=== PATIENT | female | born 1955 | race Caucasian/White ===

== ENCOUNTER 2018-05-07 09:52 | Inpatient (IN) | payer MEDICAID ==
[~2018-05-07] VITALS: Ht 167.6 cm; Wt 47.8 kg
[2018-05-07] VITALS (19 sets, daily range): BP systolic 91–147; BP diastolic 43–117
--- NOTE | 2018-05-07 09:58 | NUR ---
SEEN AND EXAMINED BY DR. BELTRÁN.
--- NOTE | 2018-05-07 10:05 | NUR ---
PT [id number], FROM HOME, SOB AND RAPID AFIB HR178, PT IS AAOX3, NOTED RESPIRATORY DISTRESS, HOOKED TO MONITOR AND O2 AT 2LPM VIA NC, KEPT RESTED AND COMFORTABLE, WILL CONTINUE TO MONITOR.
[2018-05-07] MEDS ORDERED: DILTIAZEM HCL 25 MG IV ONE (10:11)
[2018-05-07] MEDS ORDERED: ASPIRIN 81 MG TAB.CHEW ONE (10:11)
[2018-05-07 10:13] LABS: BASOPHILS # (AUTO) 0.1 /CMM (0.0-0.2); BASOPHILS % (AUTO) 0.5 % (0.0-2.0); HEMATOCRIT 36 % (33-45); HEMOGLOBIN 11.6 g/dL (11.5-14.8); LYMPHOCYTES # (AUTO) 0.4 /CMM (0.8-4.8); MEAN CORPUSCULAR HGB CONC 32 g/dl (31.0-36.0); MEAN CORPUSCULAR VOLUME 77 fL (82-100); MONOCYTES # (AUTO) 0.5 /CMM (0.1-1.30); MONOCYTES % (AUTO) 4.6 % (2.0-12.0); NEUTROPHILS % (AUTO) 90.9 % (43.0-81.0); PLATELET COUNT (AUTO) 356 /CMM (150-450); RED BLOOD CELL COUNT(AUTO) 4.61 MIL/uL (4.0-5.2)
--- NOTE | 2018-05-07 10:15 | NUR ---
LABS DRAWNED AND SENT TO LAB.
--- NOTE | 2018-05-07 10:18 | NUR ---
PARTS PICKER AT BEDSIDE FOR XRAY.
[2018-05-07] MEDS ORDERED: ASPIRIN 81 MG TAB.CHEW PO ONE (10:30)
[2018-05-07] MEDS ORDERED: DILTIAZEM HCL 50 MG IV IV ONE (10:30)
[2018-05-07 10:40] LABS: BILIRUBIN,DIRECT 0.2 mg/dL (0.0-0.2); BILIRUBIN,TOTAL 0.5 mg/dL (0.2-1.0); CALCIUM, SERUM 8.8 mg/dL (8.5-10.1); CREATININE 0.8 mg/dL (0.6-1.3)
[2018-05-07 10:41] LABS: ALBUMIN 3.1 g/dL (3.4-5.0); TOTAL PROTEIN, SERUM 7.5 g/dL (6.4-8.2)
[2018-05-07] MEDS ORDERED: LORA1TAB PO (10:53)
[2018-05-07] MEDS ORDERED: AMLO10TA7 PO (10:53)
[2018-05-07] MEDS ORDERED: ALOG25TA2 PO (10:53)
[2018-05-07] MEDS ORDERED: HALO10TA13 PO (10:53)
[2018-05-07] MEDS ORDERED: BENZ1TAB7 PO (10:53)
[2018-05-07] MEDS ORDERED: BLOO-668 IN (10:53)
[2018-05-07] MEDS ORDERED: MECL12.582 PO (10:53)
[2018-05-07] MEDS ORDERED: CLON0.1T PO (10:53)
[2018-05-07] MEDS ORDERED: LOSA50TA39 PO (10:53)
--- NOTE | 2018-05-07 11:05 | NUR ---
TURNED IN MOVE SHEET
--- NOTE | 2018-05-07 11:54 | NUR ---
SPOKED TO KWESI FOR PT INFO AND STATUS.
[2018-05-07] MEDS ORDERED: DILTIAZEM HCL IV 125 MG in IV D5W 100 ML IV ONE (12:00)
--- NOTE | 2018-05-07 12:30 | NUR ---
CALLED NURSING SUP. FOR ICU BED
--- NOTE | 2018-05-07 12:40 | NUR ---
TECH AT BEDSIDE FOR ULTRASOUND.
--- NOTE | 2018-05-07 12:47 | NUR ---
PATIENT GOING TO ROOM 253 CHARLA RN RECEIVING NURSE
--- NOTE | 2018-05-07 13:15 | NUR ---
DR. WHEELER AT BEDSIDE FOR EVAL.
--- NOTE | 2018-05-07 13:25 | NUR ---
REPORT GIVEN TO JASKARAN DUNHAM FOR SAURABH.
[2018-05-07] MEDS ORDERED: DILTIAZEM HCL IV 125 MG in IV D5W 100 ML IV PRN (14:00)
[2018-05-07] MEDS ORDERED: DIGOXIN INJ 0.5 MG/2 ML AMPUL IV ONE (14:00)
[2018-05-07] MEDS ORDERED: *INSULIN REGULAR(HUMULIN R)HUM 100 UNIT/ML VIAL SQ PRN (14:00)
[2018-05-07] MEDS ORDERED: DEXTROSE 50%-WATER 50 ML DISP.SYRIN IV PRN (14:00)
[2018-05-07] MEDS ORDERED: BENZTROPINE MESYLATE (1 MG) 1 MG TABLET PO SCH ×2 (14:00)
[2018-05-07] MEDS ORDERED: ACETAMINOPHEN 325 MG TABLET PO PRN (14:00)
[2018-05-07] MEDS: METOPROLOL TARTRATE 50 MG TABLET PO SCH ×3 (14:14→21:00)
[2018-05-07] MEDS: BLOOD SUGAR DIAGNOSTIC 1 EACH STRIP VI SCH ×2 (17:23→21:03)
[2018-05-07] MEDS: INSULIN REGULAR, HUMAN 100 UNIT/ML 3 ML VIAL SQ PRN (17:26)
--- NOTE | 2018-05-07 18:21 | NUR ---
ROOF BOLTER OPERATOR ADMITTING NOTES: 1345H Rec'd pt via gurney accompanied by RN & TELECOMMUNICATIONS LINESWORKER. Pt is A/O x 2-3, not in any distress, denies any CP & palpitations. On NC at 2lpm, no SOB, sating at 98%. Placed on telemonitor, uncontrolled Afib w/ HR 120 bpm. Has 2 IV line access patent & intact w/ no s/sx of infection/infiltration noted - RH G20 w/ Cardizem drip x 10 mg/hr infusing well & LH G18, SL. No skin issues noted. Pt is independent w/ bed mobility. 1420H Consent for US Guided Thoracentesis of the L lung secured, signed by pt w/ verbalization of understanding. Procedure done by IR, tolerated well w/ 1.5L output. Pleural fluid specimen sent to lab for further studies as ordered. CXR ordered STAT post thoracentesis. Dr. Reis s/e pt. Dr. Ruggiero made aware of the latest Trop 2.517 & current condition of the pt (controlled HR while on Cardizem at 5mg/hr) w/ NNO. 1800H Family came & updated about pt status. Pt was oriented to her room. Safety precaution kept in place at all times w/ bed in lowest & locked pos. Call light placed w/in reach. Will endorse to PM RN for SAURABH.
--- NOTE | 2018-05-07 19:30 | NUR ---
RN NOTES RECEIVED PT AWAKE WATCHING TV ON BED. NO ACUTE RESPIRATORY DISTRESS. WITH O2 2LPM VIA NC SATURATION 98%. PATIENT IS AOX2 ABLE TO VERBALIZED NEEDS. A-FIB CONTROLLED ON TELE MONITOR. HR 80 IV SITE ON RIGHT HAND AND LEFT AND INTACT AND PATENT RUNNING WITH CARDIZEM @ 5MG/HR AND 1/2 NS +10MEQ KCL @ 75 ML/HR. VSS STABLE AT THIS TIME. CONTINUE TO MONITOR FOR ANY S/S FRO M S/ P THORACENTESIS. KEPT PT CLEAN AND DRY. CALL LIGHT KEPT WITHIN EASY REACH AND ENCOURAGE TO USED WHEN NEED ASSISTANCE, DEMONSTRATED UNDERSTANDING.
[2018-05-07] MEDS: HALOPERIDOL 5 MG TABLET PO SCH (21:03)
--- NOTE | 2018-05-07 22:00 | NUR ---
RN NOTES STOP CARDIZEM DRIP PER DR. WHEELER ORDER, SBP <100MMHG. PT IS ALERT - TACHYCARDIA AND TACHYPNEA. WILL CONTINUE TO MONITOR.
--- NOTE | 2018-05-07 22:15 | NUR ---
RN NOTES CALLED AND SPOKE TO DR. WHEELER THAT PATIENT SBP WENT DOWN TO 91 AND PATIENT STILL ON DILTIAZEM @ 5 MG/ML AND ALSO PATIENT REFUSED TO TAKE METOPROLOL BY MOUTH. MD ORDER TO GIVE METOPROLOL 5MG IVP Q6H, HOLD IF HR <60 AND TO GIVE ATIVAN 1 MG Q6H PRN NOTED AND CARRIED OUT ORDER
[2018-05-07] MEDS ORDERED: LORAZEPAM INJ 2 MG/ML VIAL IV PRN (22:30)
[2018-05-07] MEDS: METOPROLOL TARTRATE INJ 5 MG/5 ML AMPUL IVP SCH (23:00)
[2018-05-07] MEDS: LORAZEPAM 1 MG TABLET PO PRN (23:01)
[2018-05-08] VITALS (37 sets, daily range): BP systolic 86–142; BP diastolic 33–87
[2018-05-08 04:16] LABS: BASOPHILS % (AUTO) 0.2 % (0.0-2.0); EOSINOPHILS % (AUTO) 0.8 % (0.0-6.0); HEMATOCRIT 34 % (33-45); HEMOGLOBIN 11.2 g/dL (11.5-14.8); LYMPHOCYTES # (AUTO) 0.8 /CMM (0.8-4.8); LYMPHOCYTES % (AUTO) 9.8 % (20.0-44.0); MEAN CORPUSCULAR HGB CONC 33 g/dl (31.0-36.0); MEAN CORPUSCULAR VOLUME 78 fL (82-100); MONOCYTES # (AUTO) 0.5 /CMM (0.1-1.30); MONOCYTES % (AUTO) 6.8 % (2.0-12.0); NEUTROPHILS # (AUTO) 6.5 /CMM (1.8-8.9); NEUTROPHILS % (AUTO) 82.4 % (43.0-81.0); PLATELET COUNT (AUTO) 313 /CMM (150-450); RED BLOOD CELL COUNT(AUTO) 4.34 MIL/uL (4.0-5.2); WHITE BLOOD COUNT (AUTO) 7.9 K/uL (4.3-11.0)
[2018-05-08 04:42] LABS: ALBUMIN 2.5 g/dL (3.4-5.0); BILIRUBIN,TOTAL 0.4 mg/dL (0.2-1.0); CREATININE 0.5 mg/dL (0.6-1.3); POTASSIUM 3.9 mmol/L (3.5-5.1); TOTAL PROTEIN, SERUM 6.2 g/dL (6.4-8.2)
[2018-05-08] MEDS: METOPROLOL TARTRATE INJ 5 MG/5 ML AMPUL IVP SCH (06:17)
--- NOTE | 2018-05-08 07:10 | NUR ---
RN INITIAL NOTES: Rec'd pt awake on bed, slight restless, A/O x 2. On room air, sating at 98%. On telemonitor, controlled/uncontrolled Afib. Has IV line on RH G20 SL & LH G18 w/ 1/2 NS + 10 meqs KCL x 75 cc/hr infusing well w/ no s/sx of infection/infiltration noted. Safety precaution all in place w/ bed in lowest & locked pos. Bed alarm on. Call light w/in reach. Will continue to monitor & attend pt needs.
--- NOTE | 2018-05-08 07:14 | NUR ---
RN NOTES PATIENT AWAKE AND WANTED TO GET OOB. FREQUENTLY REMINDED ABOUT SAFETY AND PREVENTION FROM FALLS. ANXIETY PRESENT. NO SIGNIFICANT CHANGES THROUGHOUT THE SHIFT. REMAINED A-FIB CONTROLLED ON TELE MONITOR HIGHEST HR WAS 122 NOT SUSTAINING. AFEBRILE. TOLERATED ROOM AIR. SATURATION REMAINED >95%. KEPT PT CLEAN AND DRY. ENDORSED CONTINUITY OF CARE TO AM NURSE.
--- NOTE | 2018-05-08 07:35 | NUR ---
Pt seen & examined by Dr. Ruggiero.
[2018-05-08] MEDS: BLOOD SUGAR DIAGNOSTIC 1 EACH STRIP VI SCH ×4 (07:54→22:54)
[2018-05-08] MEDS: INSULIN REGULAR, HUMAN 100 UNIT/ML 3 ML VIAL SQ PRN ×3 (07:55→17:22)
--- NOTE | 2018-05-08 08:40 | NUR ---
Pt seen & examined by Dr. Reis w/ orders to follow up consult w/ Dr. Irwin for pigtail placement.
--- NOTE | 2018-05-08 08:54 | NUR ---
Pt seen & examined by Dr. Preciado w/ orders made & carried out. Per , keep pt NPO except meds for now for possible pigtail placement on the L lung. Dr. Irwin made aware, awaiting for response.
[2018-05-08] MEDS ORDERED: MECLIZINE HCL 12.5 MG TABLET PO PRN (09:00)
[2018-05-08] MEDS: LORAZEPAM 1 MG TABLET PO PRN ×2 (10:01→18:57)
--- NOTE | 2018-05-08 11:06 | NUR ---
Dr. Ruggiero made aware re: uncontrolled Afib w/ HR >140's. Per MD change Cardizem to 240mg once daily and may change transfer to Tele instead of MS.
[2018-05-08] MEDS ORDERED: DILTIAZEM HCL 30 MG TABLET PO SCH ×2 (11:30→12:00)
[2018-05-08] MEDS: DILTIAZEM HCL CD 240 MG PO SCH (11:31)
[2018-05-08] MEDS: DIGOXIN 0.125 MG TABLET PO SCH (12:33)
--- NOTE | 2018-05-08 13:14 | NUR ---
Per Dr. Irwin, he will see pt later at 5pm & will do procedure tomorrow. Dr. Reis & Dr. Ruggiero made aware.
--- NOTE | 2018-05-08 13:18 | NUR ---
Dr. Ruggiero updated that despite of the Cardizem 240mg cap PO & Digoxin 0.12gmg tab PO given, pt's HR still at 150's. Per MD, may give Digoxin 0.25 mg IVP x 1. also made aware that per Dr. Irwin, pigtail placement will be done tomorrow.
[2018-05-08] MEDS ORDERED: DIGOXIN INJ 0.5 MG/2 ML AMPUL IV ONE (13:30)
--- NOTE | 2018-05-08 16:15 | NUR ---
Rec'd call from Dr. Irwin, per to secure consent for placement of Pleurx drainage on L lung. NPO post MN.
--- NOTE | 2018-05-08 17:50 | NUR ---
TRANSFERRED FROM ICU,FAMILY AT BEDSIDE. HOOKED UP TO TELE RHYTHM AFIB RATE OF 108.PT. ORIENTED TO RM.IV INFUSING.SIDE RAILS UP.CALL SEWELL WITHIN REACH.
--- NOTE | 2018-05-08 18:00 | NUR ---
ELECTRONICS TECHNICIAN NOTES: Confirmed w/ Dr. Preciado re: transfer to Tele. Pt's current HR at 90-100's. Per okay to transfer. Pt was transferred to Tele 315/2 as ordered via bed accompanied by RN & family. Pt not in any distress. IV line access kept patent & intact w/ no s/sx of infection/infiltration noted. No belongings noted. Medications sent w/ pt. Report given to Gretel JESSICA, made her aware re: consent already signed for planned procedure cirilo & to keep pt NPO post MN as ordered by Dr. Irwin. Family & pt also updated regarding the planned procedure. No concerns/issues upon transfer.
--- NOTE | 2018-05-08 18:57 | NUR ---
PT. PULLING AT IV AND REMOVING O2 SET UP. FAMILY OUT TO DESK AND ASKING FOR HER TO BE MEDICATED,STATE THEY WILL WAIT FOR RN.FAMILY OPPOSED TO WRIST RESTRAINTS,REQUEST MEDICATION.GIVEN ATIVAN 1 MG PO. BED ALARM SET.
--- NOTE | 2018-05-08 20:00 | NUR ---
MS/RN OPENING NOTES RECEIVED PATIENT IN BED, ATTEMPTED TO PULL IV LINES, AND GETS UP REPORTED WANT TO TALK TO BROTHER REQUIRE ASSISTANCE FOR SAFETY. BEING MONITORED AND WITH NURSE, SITTING ON WHEEL CHAIR. LEFT HAND IV SITE PATENT, RIGHT HAND IV SITE PATENT. WILL MONITOR. DENIES PAIN BUT ANXIOUS, ATIVAN WAS GIVEN BY AM RN PRIOR TO START OF SHIFT.
[2018-05-08] MEDS: HALOPERIDOL 5 MG TABLET PO SCH (22:54)
--- NOTE | 2018-05-08 23:03 | NUR ---
BS-131 ON NPO AT MIDNIGHT.
[2018-05-09] VITALS (10 sets, daily range): BP systolic 106–128; BP diastolic 66–79
--- NOTE | 2018-05-09 02:42 | NUR ---
MS/RN NOTES IV PULLED OUT BY PATIENT, REMOVE OLD IV SITE ON LEFT AND RIGHT HAND, IV INSERT ATTEMPTED BUT FAILED 2X, PATIENT REQUESTED TO HAVE IT REINSERTED IN THE MORNING.
[2018-05-09 06:28] LABS: BASOPHILS % (AUTO) 0.1 % (0.0-2.0); EOSINOPHILS % (AUTO) 0.4 % (0.0-6.0); HEMATOCRIT 39 % (33-45); HEMOGLOBIN 12.6 g/dL (11.5-14.8); LYMPHOCYTES # (AUTO) 0.6 /CMM (0.8-4.8); LYMPHOCYTES % (AUTO) 8.2 % (20.0-44.0); MEAN CORPUSCULAR HGB CONC 32 g/dl (31.0-36.0); MEAN CORPUSCULAR VOLUME 77 fL (82-100); MONOCYTES # (AUTO) 0.5 /CMM (0.1-1.30); NEUTROPHILS # (AUTO) 6.2 /CMM (1.8-8.9); NEUTROPHILS % (AUTO) 84.3 % (43.0-81.0); PLATELET COUNT (AUTO) 324 /CMM (150-450); RED BLOOD CELL COUNT(AUTO) 5.08 MIL/uL (4.0-5.2); WHITE BLOOD COUNT (AUTO) 7.4 K/uL (4.3-11.0)
[2018-05-09] MEDS: BLOOD SUGAR DIAGNOSTIC 1 EACH STRIP VI SCH ×4 (06:39→21:09)
[2018-05-09 06:53] LABS: CALCIUM, SERUM 8.3 mg/dL (8.5-10.1); CREATININE 0.5 mg/dL (0.6-1.3); POTASSIUM 3.9 mmol/L (3.5-5.1)
[2018-05-09 06:58] LABS: THYROID STIMULATING HORMONE 2.573 uIU/mL (0.358-3.74)
--- NOTE | 2018-05-09 07:25 | NUR ---
RN AM OPENING NOTE BEDSIDE REPORT RECIEVED FROM PM NURSE. PATIENT IS RESTING IN BED. ODESSA TAMAYO AT THE BEDSIDE. PATIENT HAS PLANNED PROCEDURE AND IS NPO EXCEPT MEDICATIONS. BED IS DOWN LOCKED WITH IV INFUSING TO LEFT FA WITH NO S/S OF COMPLICATIONS. PATIENT IS SATURATING GOOD ON ROOM AIR EVEN AND UNLABORED BUT PLACED BACK ON 2 LNC PROPHYLATICALLY SINCE CC WAS SOB UPON ADMISSION. WILL CONT TO MONITOR.
--- NOTE | 2018-05-09 07:52 | NUR ---
MS/RN NOTES PATIETN AWAKE, WITH SITTER ORDER, RESPIRATIONS EVEN AND UNLABORED. KEPT COMFORTABLE. BED LOCKED. CALL LIGHTS WITHIN REACH. ENDORSE TO AM RN FOR SAURABH. ON NPO FOR PROCEDURE.
[2018-05-09] MEDS ORDERED: Digoxin PO (08:30)
[2018-05-09] MEDS ORDERED: ASPI-1152 PO (08:30)
[2018-05-09] MEDS ORDERED: DILT240C88 PO (08:30)
[2018-05-09] MEDS: DILTIAZEM HCL CD 240 MG PO SCH (08:52)
[2018-05-09] MEDS: INSULIN REGULAR, HUMAN 100 UNIT/ML 3 ML VIAL SQ PRN (12:03)
[2018-05-09] MEDS: DIGOXIN 0.125 MG TABLET PO SCH (12:06)
[2018-05-09] MEDS ORDERED: ANESTHESIA TRAY IN PYXIS 1 EA TRAY MC ONE (14:35)
[2018-05-09] MEDS ORDERED: LIDOCAINE HCL/PF 1% 30 ML SDV ONE (14:36)
--- NOTE | 2018-05-09 15:45 | NUR ---
MS RN NOTES PATIENT RETURNED FROM OR S/P PLEORX IN STABLE CONDITION WITH SURGICAL SITE ON LEFT CHEST COVERED WITH GAUZE AND TEGADERM NO DRAINAGE NOTED WILL CONTINUE TO MONITOR.
--- NOTE | 2018-05-09 18:00 | NUR ---
AU PAIR NOTES PATIENT IN BED WITH SITTER AT BEDSIDE. PATIENT ALERT, ORIENTED X3. DENIES ANY PAIN OR DISCOMFORT. ALL DUE MEDICATIONS ADMINISTERED. ALL NEEDS MET. PATIENT S/P PLEORX INSERTION. DR. WHEELER MADE AWARE OF CHEST XRAY RESULTS NO NEW ORDERS. ENDORSED CARE TO PM SHIFT.
[2018-05-09] MEDS ORDERED: HYDROCODONE/APAP 5/325MG 1 EACH TABLET PO PRN ×2 (20:00)
[2018-05-09] MEDS ORDERED: ACETAMINOPHEN 325 MG TABLET PO PRN (20:00)
[2018-05-09] MEDS: HALOPERIDOL 5 MG TABLET PO SCH (21:09)
[2018-05-09] MEDS: LORAZEPAM 1 MG TABLET PO PRN (21:18)
[2018-05-10] VITALS: BP 104/64
--- NOTE | 2018-05-10 | NUR ---
COVERSTITCH ELASTIC ATTACHER NOTES AWAKE & RESPONSIVE. NOT IN ANY DISTRESS. NO SOB NOTED. DENIES ANY PAIN OR DISCOMFORT AT THIS TIME. ON TELE AFIB @ 90S WITH IVF INFUSING WELL. MONITORED ACCORDINGLY. WITH SITTER AT BEDSIDE. CALL LIGHT WITHIN REACH. BED IN LOWEST POSITION. SR UP X 3 FOR SAFETY. REPORT GIVEN TO WHITNEY JESSICA FOR CONTINUITY OF CARE.
[2018-05-10 04:00] VITALS: BP 120/60
--- NOTE | 2018-05-10 04:00 | NUR ---
TELE NOTES RECEIVED REPORT FORM VICENTE. PT IN BED, NO DISTRESS, STABLE CONDITION,SITTER AT BEDSIDE, WILL CONTINUE TO MONITOR
--- NOTE | 2018-05-10 06:01 | NUR ---
THERMIT WELDING MACHINE OPERATOR CLOSING NOTES PT REMAINS IN BED, SLEEPING, EASILY AROUSE TO NAME CALL AND TOUCH. BREATHING EVEN AND UNLABORED ON 2L, NO COUGH OR CONGESTION AT THIS TIME. IN NO APPARENT PAIN OR DISCOMFORT AT THE MOMENT. IV ACCESS ON THE L FA20G WITH 1/2 AND 10MEQ OF POTASSIUM @75ML/HR. ALL NEEDS ANTICIPATED AND MET. PLEURX IN PLACE, DRESSING DRY AND INTACT. BED IN LOWEST LOCKED POSITION, CALL LIGHT WITHIN REACH AT ALL TIMES SITTER AT BED SIDE, WILL ENDORSE TO DAY NURSE FOR SAURABH
[2018-05-10 06:27] LABS: BASOPHILS % (AUTO) 0.1 % (0.0-2.0); EOSINOPHILS % (AUTO) 0.4 % (0.0-6.0); HEMATOCRIT 41 % (33-45); HEMOGLOBIN 13.1 g/dL (11.5-14.8); LYMPHOCYTES # (AUTO) 0.4 /CMM (0.8-4.8); LYMPHOCYTES % (AUTO) 4.8 % (20.0-44.0); MEAN CORPUSCULAR HGB CONC 32 g/dl (31.0-36.0); MEAN CORPUSCULAR VOLUME 79 fL (82-100); MONOCYTES # (AUTO) 0.7 /CMM (0.1-1.30); MONOCYTES % (AUTO) 7.5 % (2.0-12.0); NEUTROPHILS # (AUTO) 7.8 /CMM (1.8-8.9); NEUTROPHILS % (AUTO) 87.2 % (43.0-81.0); PLATELET COUNT (AUTO) 311 /CMM (150-450); RED BLOOD CELL COUNT(AUTO) 5.19 MIL/uL (4.0-5.2); WHITE BLOOD COUNT (AUTO) 8.9 K/uL (4.3-11.0)
[2018-05-10] MEDS: BLOOD SUGAR DIAGNOSTIC 1 EACH STRIP VI SCH (06:45)
[2018-05-10 06:52] LABS: CALCIUM, SERUM 8.3 mg/dL (8.5-10.1); CREATININE 0.5 mg/dL (0.6-1.3); POTASSIUM 3.7 mmol/L (3.5-5.1)
[2018-05-10 08:00] VITALS: BP 120/60
[2018-05-10 08:08] VITALS: BP 103/67
[2018-05-10] MEDS: DILTIAZEM HCL CD 240 MG PO SCH (09:39)
[2018-05-10] MEDS ORDERED: METO25TA6 PO (09:49)
[2018-05-10] MEDS ORDERED: METOPROLOL TARTRATE 25 MG TABLET PO SCH (10:00)
[2018-05-10 10:24] VITALS: BP 120/60
--- NOTE | 2018-05-10 13:45 | NUR ---
PATIENT CLEARED FOR D/C BY . PATIENT D/C TO HOME WITH HOME HEALTH (STATUS POST LEFT SIDE PLEURX DRAIN). PATIENT ALERT AND ORIENTED X3, FAMILY AT BEDSIDE. PATIENT DENIES PAIN, VS ARE STABLE AND WITHIN NORMAL RANGE, ON ROOM AIR, NO SKIN ISSUES. DRESSING ON LEFT SIDE INTACT AND CLEAN. DISCHARGE INSTRUCTIONS AND EDUCATION PROVIDED TO SONIA'S SISTER; VERBALIZED UNDERSTANDING. D/C PAPERS SIGHED, VALUABLE FORM SIGHED. PATIENT RECEIVED PLEURX DRAIN BOTTLE (ONE BOX).NEW PRESCRIPTION PROVIDED. IV LINE REMOVED , ID WRIST BAND REMOVED. PATIENT SAFELY TRANSFERRED TO [employer] VIA WHEELCHAIR ACCOMPANIED BY KELLE ALVAREZ AND FAMILY.
== END 2018-05-10 13:45 | disposition home health service (06) | DRG 136 ==
LOC: ER 09:55 → ICU 13:21 → MED 05-08 18:19 → TELE 05-09 21:01 → MED 05-10 10:17
PROVIDERS: ADMIT Internal Medicine; ATTEND Internal Medicine
PROC: 0W9B3ZZ Drainage of Left Pleural Cavity, Percutaneous Approach (ICD-10-PCS; 2018-05-07)
PROC: 0W9B30Z Drainage of Left Pleural Cavity with Drainage Device, Percutaneous Approach (ICD-10-PCS; principal; 2018-05-09)
DX: C34.90 Malignant neoplasm of unspecified part of unspecified bronchus or lung (principal); I21.4 Non-ST elevation (NSTEMI) myocardial infarction; J91.0 Malignant pleural effusion; E44.1 Mild protein-calorie malnutrition; E11.9 Type 2 diabetes mellitus without complications; D50.9 Iron deficiency anemia, unspecified; E87.1 Hypo-osmolality and hyponatremia; I48.91 Unspecified atrial fibrillation; I10 Essential (primary) hypertension; J44.9 Chronic obstructive pulmonary disease, unspecified; F17.210 Nicotine dependence, cigarettes, uncomplicated; Z92.21 Personal history of antineoplastic chemotherapy; F32.9 Major depressive disorder, single episode, unspecified; F20.9 Schizophrenia, unspecified; Z92.3 Personal history of irradiation; Z68.1 Body mass index [BMI] 19.9 or less, adult
CPT/HCPCS: 36415; 71045-TC; 76604-TC; 76942-TC; 80048-TC; 80053-TC; 80076-TC; 82962-TC; 83540-TC; 83880; 84443-TC; 84484-TC; 85025-TC; 85730-TC; 87070-TC; 87081-TC; 88305-TC; 88312-TC; 88342; 89051-TC; 93307-TC; A6402; G0378; J0690; J1160; J1815; J2704; J3480; J3490; J7060

== ENCOUNTER 2018-05-12 08:33 | Emergency (ER) | payer MEDICAID ==
[~2018-05-12] VITALS: Ht 170.2 cm; Wt 47.6 kg
[~2018-05-12 08:33] MED LIST: ALOG25TA2 PO; ASPI-1152 PO; BENZ1TAB7 PO; CLON0.1T PO; DILT240C88 PO; Digoxin PO; HALO10TA13 PO; LORA1TAB PO; LOSA50TA39 PO; MECL12.582 PO; METO25TA6 PO
[2018-05-12 08:42] VITALS: BP 108/67
--- NOTE | 2018-05-12 09:00 | NUR ---
WOUND DRESSING DONE.
--- NOTE | 2018-05-12 09:36 | NUR ---
Patient discharged to home in stable condition. Written and verbal after care instructions given. Patient verbalizes understanding of instruction.
== END 2018-05-12 09:38 | disposition home or self-care (01) ==
LOC: ER 08:38
DX: Z48.00 Encounter for change or removal of nonsurgical wound dressing (principal); E11.9 Type 2 diabetes mellitus without complications; F17.200 Nicotine dependence, unspecified, uncomplicated; Z79.82 Long term (current) use of aspirin; Z79.899 Other long term (current) drug therapy; Z85.118 Personal history of other malignant neoplasm of bronchus and lung

== ENCOUNTER 2018-07-02 09:05 | Emergency (ER) | payer MEDICAID ==
[~2018-07-02] VITALS: Ht 170.2 cm; Wt 47.6 kg
[2018-07-02 09:26] VITALS: BP 139/94
--- NOTE | 2018-07-02 09:32 | NUR ---
patient BIB family from home, family states that she had lung drain 1 week ago, done by homehealth nurse and noted blood and pain. Patient on room air, breathing evenly and unlabored. Connected to the monitor and pulse ox. kept comfortable, will continue to monitor accordingly.
--- NOTE | 2018-07-02 10:30 | NUR ---
drained fluid from rt chest pleurx with 200ml of serous fluid, dr. loja at bedside, per md, discard specimen, does not need to be sent to lab.
[2018-07-03] MEDS ORDERED: ONDANSETRON HCL/PF 4 MG/2 ML VIAL ONE (23:44)
== END 2018-07-02 10:45 | disposition home or self-care (01) ==
LOC: ER 09:05
DX: J90 Pleural effusion, not elsewhere classified (principal); C34.92 Malignant neoplasm of unspecified part of left bronchus or lung; F17.200 Nicotine dependence, unspecified, uncomplicated; Z79.82 Long term (current) use of aspirin
CPT/HCPCS: 71045-TC; J2405

== ENCOUNTER 2018-08-03 02:53 | Inpatient (IN) | payer MEDICAID ==
[~2018-08-03] VITALS: Ht 167.6 cm; Wt 46.3 kg
[2018-08-03] MEDS ORDERED: DIGOXIN INJ 0.5 MG/2 ML AMPUL ONE (03:29)
[2018-08-03] MEDS ORDERED: DILTIAZEM HCL 25 MG IV ONE (03:30)
[2018-08-03] MEDS ORDERED: DIGOXIN INJ 0.5 MG/2 ML AMPUL IV ONE (03:30)
[2018-08-03] MEDS ORDERED: IV NS 0.9% 1,000 ML BAG IV ONE ×2 (03:30→04:30)
[2018-08-03] MEDS ORDERED: DILTIAZEM HCL 50 MG IV IV ONE (03:30)
[2018-08-03 03:37] LABS: EOSINOPHILS % (AUTO) 0.1 % (0.0-6.0); HEMATOCRIT 38 % (33-45); LYMPHOCYTES # (AUTO) 0.5 /CMM (0.8-4.8); LYMPHOCYTES % (AUTO) 2.6 % (20.0-44.0); MEAN CORPUSCULAR HGB CONC 32 g/dl (31.0-36.0); MEAN CORPUSCULAR VOLUME 79 fL (82-100); MONOCYTES # (AUTO) 0.8 /CMM (0.1-1.30); MONOCYTES % (AUTO) 4.7 % (2.0-12.0); NEUTROPHILS # (AUTO) 16.3 /CMM (1.8-8.9); NEUTROPHILS % (AUTO) 92.6 % (43.0-81.0); PLATELET COUNT (AUTO) 434 /CMM (150-450); RED BLOOD CELL COUNT(AUTO) 4.73 MIL/uL (4.0-5.2); WHITE BLOOD COUNT (AUTO) 17.6 K/uL (4.3-11.0)
[2018-08-03 03:41] LABS: CALCIUM, SERUM 9.3 mg/dL (8.5-10.1); CREATININE 0.8 mg/dL (0.6-1.3)
[2018-08-03] MEDS ORDERED: PIPERACILLIN /TAZOBACTAM 3.375 G in IV D5W 50 ML IV ONE (04:30)
[2018-08-03] MEDS ORDERED: VANCOMYCIN 1 GM in IV D5W 250 ML IV ONE (04:30)
[2018-08-03 04:58] LABS: ALANINE AMINOTRANSFERASE 9 U/L (12-78); ALKALINE PHOSPHATASE 106 U/L (46-116); ASPARTATE AMINOTRANSFERASE 12 U/L (15-37); BILIRUBIN,DIRECT 0.1 mg/dL (0.0-0.2); BILIRUBIN,TOTAL 0.5 mg/dL (0.2-1.0); TOTAL PROTEIN, SERUM 8.5 g/dL (6.4-8.2)
[2018-08-03] MEDS ORDERED: ASPIRIN 81 MG TAB.CHEW PO ONE ×2 (05:00→05:30)
[2018-08-03] MEDS ORDERED: PIPERACILLIN /TAZOBACTAM 3.375 G VIAL IV ONE (05:06)
[2018-08-03] MEDS ORDERED: VANCOMYCIN 1 GM VIAL ONE (05:06)
[2018-08-03] MEDS ORDERED: ASPIRIN 81 MG TAB.CHEW ONE (05:07)
[2018-08-03] MEDS ORDERED: IV NS 0.9% 1,000 ML IV PRN (05:47)
[2018-08-03] MEDS ORDERED: MECLIZINE HCL 12.5 MG TABLET PO PRN (06:00)
[2018-08-03] MEDS ORDERED: MAG HYDROX/AL HYDROX/SIMETH 30 ML UDC PO PRN (06:00)
[2018-08-03] MEDS ORDERED: LORAZEPAM 1 MG TABLET PO PRN (06:00)
[2018-08-03] MEDS ORDERED: PIPERACILLIN /TAZOBACTAM 4.5 G in IV D5W 50 ML IV SCH (06:00)
[2018-08-03] MEDS ORDERED: Z GUARD REMEDY 2 OZ OINT TP PRN (06:00)
[2018-08-03] MEDS ORDERED: ACETAMINOPHEN 325 MG TABLET PO PRN (06:00)
[2018-08-03] MEDS ORDERED: ONDANSETRON HCL/PF 4 MG/2 ML VIAL IVP PRN (06:00)
[2018-08-03] MEDS ORDERED: MAGNESIUM HYDROXIDE 30 ML UDC PO PRN (06:00)
[2018-08-03] MEDS ORDERED: HYDROCODONE/APAP 5/325MG 1 EACH TABLET PO PRN (06:00)
[2018-08-03] MEDS ORDERED: BENZTROPINE MESYLATE (1 MG) 1 MG TABLET PO PRN (06:00)
[2018-08-03 06:36] LABS: APPEARANCE,URINE CLEAR (CLEAR); BILIRUBIN,URINE NEGATIVE (NEGATIVE); BLOOD, URINE NEGATIVE Ery/uL (NEGATIVE); COLOR,URINE YELLOW (YELLOW); KETONES,URINE NEGATIVE (NEGATIVE); LEUKOCYTE ESTERASE ,URINE TRACE (NEGATIVE); NITRITE, URINE NEGATIVE (NEGATIVE); PROTEIN,URINE NEGATIVE (NEGATIVE); UGLUCOSE 1+ mg/dL (NEGATIVE); UROBILINOGEN,URINE 0.2 EU/dL (0.2)
[2018-08-03 07:09] LABS: BACTERIA,URINE Rare /HPF (None Seen); RBC,URINE NONE SEEN /HPF (0-2)
[2018-08-03 07:10] LABS: SQUAMOUS EPITHELIAL CELL,UR Few /HPF (None Seen)
[2018-08-03 08:03] LABS: BASOPHILS # (AUTO) 0.1 /CMM (0.0-0.2); BASOPHILS % (AUTO) 0.3 % (0.0-2.0); EOSINOPHILS % (AUTO) 0.1 % (0.0-6.0); HEMATOCRIT 32 % (33-45); HEMOGLOBIN 10.6 g/dL (11.5-14.8); LYMPHOCYTES # (AUTO) 0.5 /CMM (0.8-4.8); LYMPHOCYTES % (AUTO) 2.3 % (20.0-44.0); MEAN CORPUSCULAR HGB CONC 34 g/dl (31.0-36.0); MEAN CORPUSCULAR VOLUME 78 fL (82-100); MONOCYTES # (AUTO) 0.9 /CMM (0.1-1.30); MONOCYTES % (AUTO) 4.5 % (2.0-12.0); NEUTROPHILS # (AUTO) 19.4 /CMM (1.8-8.9); NEUTROPHILS % (AUTO) 92.8 % (43.0-81.0); PLATELET COUNT (AUTO) 379 /CMM (150-450); RED BLOOD CELL COUNT(AUTO) 4.04 MIL/uL (4.0-5.2); WHITE BLOOD COUNT (AUTO) 20.9 K/uL (4.3-11.0)
[2018-08-03] MEDS ORDERED: FEE PK DOSING 1 MIN EA MC ONE (08:19)
[2018-08-03 08:29] LABS: CALCIUM, SERUM 8.2 mg/dL (8.5-10.1); CREATININE 0.8 mg/dL (0.6-1.3); POTASSIUM 3.6 mmol/L (3.5-5.1)
[2018-08-03 08:34] LABS: ALBUMIN 2.3 g/dL (3.4-5.0); BILIRUBIN,TOTAL 0.4 mg/dL (0.2-1.0); TOTAL PROTEIN, SERUM 6.9 g/dL (6.4-8.2)
[2018-08-03] MEDS ORDERED: LOSARTAN POTASSIUM 50 MG TABLET PO SCH (09:00)
[2018-08-03] MEDS ORDERED: ASPIRIN EC 81 MG TABLET.DR PO SCH (09:00)
[2018-08-03] MEDS: DILTIAZEM HCL CD 240 MG PO SCH (09:25)
[2018-08-03] MEDS: METOPROLOL TARTRATE 25 MG TABLET PO SCH ×3 (09:26→17:56)
[2018-08-03 12:00] VITALS: BP 92/59
[2018-08-03] MEDS: DIGOXIN 0.125 MG TABLET PO SCH (12:30)
[2018-08-03 15:30] VITALS: BP 103/65
[2018-08-03] MEDS: PIPERACILLIN /TAZOBACTAM 3.375 G in IV D5W 100 ML IV SCH ×2 (15:59→22:29)
[2018-08-03] MEDS: VANCOMYCIN 0.75 GM in IV D5W 250 ML IV SCH (17:56)
[2018-08-03 20:00] VITALS: BP 108/64
[2018-08-03] MEDS: HALOPERIDOL 5 MG TABLET PO SCH ×2 (21:27→22:00)
[2018-08-03] MEDS: ZOLPIDEM TARTRATE 5 MG TABLET PO PRN (22:05)
[2018-08-03 23:58] VITALS: BP 98/58
[2018-08-04] VITALS (7 sets, daily range): BP systolic 98–132; BP diastolic 58–70
[2018-08-04] MEDS: VANCOMYCIN 0.75 GM in IV D5W 250 ML IV SCH (05:35)
[2018-08-04 06:10] LABS: ALBUMIN 2.2 g/dL (3.4-5.0); BILIRUBIN,TOTAL 0.5 mg/dL (0.2-1.0); CALCIUM, SERUM 8.8 mg/dL (8.5-10.1); CREATININE 0.5 mg/dL (0.6-1.3); MAGNESIUM 1.8 mg/dL (1.8-2.4); PHOSPHORUS 2.4 mg/dL (2.5-4.9); POTASSIUM 3.2 mmol/L (3.5-5.1); TOTAL PROTEIN, SERUM 6.8 g/dL (6.4-8.2)
[2018-08-04 06:18] LABS: BASOPHILS % (AUTO) 0.3 % (0.0-2.0); EOSINOPHILS % (AUTO) 0.2 % (0.0-6.0); HEMATOCRIT 30 % (33-45); HEMOGLOBIN 9.9 g/dL (11.5-14.8); LYMPHOCYTES # (AUTO) 0.5 /CMM (0.8-4.8); LYMPHOCYTES % (AUTO) 4.7 % (20.0-44.0); MEAN CORPUSCULAR HGB CONC 33 g/dl (31.0-36.0); MEAN CORPUSCULAR VOLUME 78 fL (82-100); MONOCYTES # (AUTO) 0.9 /CMM (0.1-1.30); MONOCYTES % (AUTO) 8.7 % (2.0-12.0); NEUTROPHILS # (AUTO) 8.4 /CMM (1.8-8.9); NEUTROPHILS % (AUTO) 86.1 % (43.0-81.0); PLATELET COUNT (AUTO) 337 /CMM (150-450); RED BLOOD CELL COUNT(AUTO) 3.86 MIL/uL (4.0-5.2); WHITE BLOOD COUNT (AUTO) 9.8 K/uL (4.3-11.0)
[2018-08-04 06:23] LABS: THYROID STIMULATING HORMONE 1.266 uIU/mL (0.358-3.74)
[2018-08-04] MEDS: PIPERACILLIN /TAZOBACTAM 3.375 G in IV D5W 100 ML IV SCH ×3 (06:46→22:29)
[2018-08-04] MEDS: METOPROLOL TARTRATE 25 MG TABLET PO SCH ×3 (09:00→18:05)
[2018-08-04] MEDS: POTASSIUM CHLORIDE 20 MEQ TAB.PRT.SR PO SCH ×3 (09:40→10:08)
[2018-08-04] MEDS: LINAGLIPTIN 5 MG TABLET PO SCH (09:40)
[2018-08-04] MEDS: DILTIAZEM HCL CD 240 MG PO SCH (09:40)
[2018-08-04] MEDS ORDERED: K PHOS NEUTRAL 250 MG TABLET PO ONE (11:00)
[2018-08-04] MEDS: DIGOXIN 0.125 MG TABLET PO SCH (13:00)
[2018-08-04] MEDS ORDERED: LURASIDONE 80 MG PO SCH (18:00)
[2018-08-04] MEDS: VANCOMYCIN 1 GM in IV D5W 250 ML IV SCH (19:39)
[2018-08-04] MEDS: ZOLPIDEM TARTRATE 5 MG TABLET PO PRN (22:05)
[2018-08-05] MEDS: VANCOMYCIN 1 GM in IV D5W 250 ML IV SCH (06:00)
[2018-08-05 06:33] LABS: CALCIUM, SERUM 8.4 mg/dL (8.5-10.1); CREATININE 0.5 mg/dL (0.6-1.3); POTASSIUM 3.5 mmol/L (3.5-5.1)
[2018-08-05] MEDS: PIPERACILLIN /TAZOBACTAM 3.375 G in IV D5W 100 ML IV SCH (07:17)
[2018-08-05 07:57] VITALS: BP 121/77
[2018-08-05 08:00] VITALS: BP 121/77
[2018-08-05] MEDS: LINAGLIPTIN 5 MG TABLET PO SCH (08:29)
[2018-08-05 08:30] VITALS: BP 121/77
[2018-08-05] MEDS: METOPROLOL TARTRATE 25 MG TABLET PO SCH (08:30)
[2018-08-05] MEDS: DILTIAZEM HCL CD 240 MG PO SCH (08:30)
[2018-08-05] MEDS ORDERED: LEVO500T75 PO (08:47)
[2018-08-05] MEDS: DIGOXIN 0.125 MG TABLET PO SCH (13:00)
== END 2018-08-05 12:30 | disposition home health service (06) | DRG 720 ==
LOC: ER 02:59 → TELE 06:23 → MED 08-04 09:33
PROVIDERS: ADMIT Nurse Practitioner Acute Care; ATTEND Internal Medicine
PROC: 0W9B3ZZ Drainage of Left Pleural Cavity, Percutaneous Approach (ICD-10-PCS; principal; 2018-08-03)
DX: A41.9 Sepsis, unspecified organism (principal); I21.A1 Myocardial infarction type 2; J91.0 Malignant pleural effusion; D68.59 Other primary thrombophilia; J15.9 Unspecified bacterial pneumonia; C79.9 Secondary malignant neoplasm of unspecified site; R64 Cachexia; E22.2 Syndrome of inappropriate secretion of antidiuretic hormone; E87.2 Acidosis; M48.54XA Collapsed vertebra, not elsewhere classified, thoracic region, initial encounter for fracture; C34.90 Malignant neoplasm of unspecified part of unspecified bronchus or lung; J98.11 Atelectasis; D64.9 Anemia, unspecified; E11.9 Type 2 diabetes mellitus without complications; F17.210 Nicotine dependence, cigarettes, uncomplicated; E87.6 Hypokalemia; I10 Essential (primary) hypertension; F41.9 Anxiety disorder, unspecified; Z92.21 Personal history of antineoplastic chemotherapy; J98.19 Other pulmonary collapse; D50.9 Iron deficiency anemia, unspecified; F20.9 Schizophrenia, unspecified; I48.0 Paroxysmal atrial fibrillation; J44.0 Chronic obstructive pulmonary disease with (acute) lower respiratory infection; Z66 Do not resuscitate; Z79.82 Long term (current) use of aspirin; R65.20 Severe sepsis without septic shock
CPT/HCPCS: 36415; 71045-TC; 71250-TC; 76942-TC; 80048-TC; 80053-TC; 80061-TC; 80076-TC; 80202-TC; 81000-TC; 82728-TC; 83540-TC; 83605-TC; 83735-TC; 83880; 84100-TC; 84443-TC; 84484-TC; 85025-TC; 85730-TC; 87040-TC; 87081-TC; 87086-TC; 93307-TC; G0378; J1160; J2543; J3370; J3490; J7030; J7050; J7060

== ENCOUNTER 2018-08-24 21:23 | Inpatient (IN) | payer MEDICAID ==
[~2018-08-24] VITALS: Ht 165.1 cm; Wt 46.3 kg
[~2018-08-24 21:23] MED LIST changes: +LEVO500T75 PO
--- NOTE | 2018-08-24 21:50 | NUR ---
IV CHAPARRITA EOBTAINED ON LFA 20G. [facility]LOOD [facility]
--- NOTE | 2018-08-24 21:59 | NUR ---
CALISTA FROM HOME. TO ER BED 11. AAOX4. SOB BREATHING REGULAR BUT SHALLOW. NO PAIN UPON INSPIRATION REPORTED. C/O SOB X 1HOUR SUPERVISOR PRODUCTION MANAGING. PT REPORT BEING DX FOR LUNG CANCER. PT RECEIVING ALBUTEROL BREATHING TX UPON ARRIVAL. PT PLACED ON O2 VIA NC @ 2LPM. AT BEDSIDE. ORDES RECEIBED
[2018-08-24] MEDS ORDERED: IPRATROPIUM NEB FS 0.5 MG/2.5 ML AMPUL.NEB NEB ONE (22:00)
[2018-08-24] MEDS ORDERED: ALBUTEROL FS 2.5 MG/3 ML VIAL.NEB NEB ONE (22:00)
--- NOTE | 2018-08-24 22:01 | NUR ---
EKG AND XRAY AT BEDSIDE
[2018-08-24 22:02] LABS: BASOPHILS # (AUTO) 0.1 /CMM (0.0-0.2); BASOPHILS % (AUTO) 0.7 % (0.0-2.0); EOSINOPHILS % (AUTO) 0.2 % (0.0-6.0); HEMATOCRIT 35 % (33-45); LYMPHOCYTES # (AUTO) 0.5 /CMM (0.8-4.8); LYMPHOCYTES % (AUTO) 3.7 % (20.0-44.0); MEAN CORPUSCULAR HGB CONC 32 g/dl (31.0-36.0); MEAN CORPUSCULAR VOLUME 77 fL (82-100); MONOCYTES # (AUTO) 0.7 /CMM (0.1-1.30); MONOCYTES % (AUTO) 5.2 % (2.0-12.0); NEUTROPHILS # (AUTO) 12.8 /CMM (1.8-8.9); NEUTROPHILS % (AUTO) 90.2 % (43.0-81.0); PLATELET COUNT (AUTO) 340 /CMM (150-450); WHITE BLOOD COUNT (AUTO) 14.2 K/uL (4.3-11.0)
[2018-08-24] MEDS ORDERED: ALBUTEROL FS 2.5 MG/3 ML VIAL.NEB ONE (22:08)
[2018-08-24] MEDS ORDERED: IPRATROPIUM NEB FS 0.5 MG/2.5 ML AMPUL.NEB ONE (22:08)
[2018-08-24 22:11] LABS: CALCIUM, SERUM 8.8 mg/dL (8.5-10.1); CREATININE 0.8 mg/dL (0.6-1.3); POTASSIUM 3.8 mmol/L (3.5-5.1)
[2018-08-24 22:17] LABS: ALBUMIN 2.8 g/dL (3.4-5.0); BILIRUBIN,DIRECT 0.1 mg/dL (0.0-0.2); BILIRUBIN,TOTAL 0.3 mg/dL (0.2-1.0)
[2018-08-24] MEDS ORDERED: CT SWABBABLE VALVE TRANS SET 1 EA INFUS.SET MC ONE (22:22)
[2018-08-24] MEDS ORDERED: IV NS 0.9% 250 ML IV ONE (22:22)
[2018-08-24] MEDS ORDERED: IOHEXOL-350 100 ML VIAL IV ONE (22:22)
--- NOTE | 2018-08-25 00:11 | NUR ---
BED 116-1
--- NOTE | 2018-08-25 00:53 | NUR ---
MD ORDER TO ASPIRATE FLUIDS FROM PT'S CHEST TUBE. UNABLE TO ASPIRATE WITH A SYRUNGE, NEED A PLEUROVAC TO EMPTY FLUIDS. MD MADE AWARE.
--- NOTE | 2018-08-25 01:32 | NUR ---
REPORT GIVEN TO JASKARAN SEXTON FOR SAURABH. PT GOING TO 107
[2018-08-25 02:30] VITALS: BP 142/87
--- NOTE | 2018-08-25 02:30 | NUR ---
RN NOTES RECEIVED PATIENT REPORT FROM [facility]. RECEIVED PATIENT FROM ER ON SIDRA, A/A/OX4. PATIENT PLACED ON CONVEX GRINDER WITH ST HR 104. PATIENT IS GETTING 02 VIA NC WITH SPO2 OF 100%. NO CHEST PAIN, NO SOB AT THIS TIME, NO COMPLAINT OF PAIN OF ANY KIND. LEFT FOREARM IV LINE G20 IS PATIENT AND INTACT SL.EFT CHEST TUBE PLUROVAC IS IN PLACE WITH DRESSING INTACT . ALL SAFETY MEASURES ARE IN PLACE, BED IN LOW, LOCKED POSITION, CALL LIGHT IS IN REACH. WILL CONTINUE TO MONITOR PATIENT CLOSELY.
--- NOTE | 2018-08-25 02:41 | NUR ---
PT TRANSPORTED TO UNIT WITH EMT AND RN AT BEDSIDE W/ ACLS PROTOCOL. NAD NOTED DURING TRANSPORT.
[2018-08-25] MEDS ORDERED: HYDROCODONE/APAP 5/325MG 1 EACH TABLET PO PRN (03:00)
[2018-08-25] MEDS ORDERED: ACETAMINOPHEN 325 MG TABLET PO PRN (03:00)
[2018-08-25 04:00] VITALS: BP_SYST 131; BP_SYST 138; BP_DIAS 77; BP_DIAS 83
[2018-08-25 04:38] LABS: BASOPHILS % (AUTO) 0.4 % (0.0-2.0); HEMATOCRIT 35 % (33-45); LYMPHOCYTES # (AUTO) 0.5 /CMM (0.8-4.8); MEAN CORPUSCULAR HGB CONC 32 g/dl (31.0-36.0); MEAN CORPUSCULAR VOLUME 79 fL (82-100); MONOCYTES # (AUTO) 0.5 /CMM (0.1-1.30); MONOCYTES % (AUTO) 5.5 % (2.0-12.0); NEUTROPHILS # (AUTO) 8.4 /CMM (1.8-8.9); NEUTROPHILS % (AUTO) 89.1 % (43.0-81.0); PLATELET COUNT (AUTO) 351 /CMM (150-450); RED BLOOD CELL COUNT(AUTO) 4.37 MIL/uL (4.0-5.2); WHITE BLOOD COUNT (AUTO) 9.4 K/uL (4.3-11.0)
[2018-08-25 04:49] LABS: CALCIUM, SERUM 8.7 mg/dL (8.5-10.1); CREATININE 0.8 mg/dL (0.6-1.3); POTASSIUM 3.1 mmol/L (3.5-5.1)
--- NOTE | 2018-08-25 05:00 | NUR ---
RN NOTES GOT A CALL FROM LAB PATIENT'S TROPONIN IS 1.403. CALLED MD WHEELER AND NO NEW ORDERS FOR NOW. GAVE TELEPHONE ORDER FOR DRAINING LEFT CHEST TUBE PLUROVAC AND IF NOT SUCCESSFUL DO ULTRASOUND GUIDED THORACENTESIS. WILL CONTINUE TO MONITOR PATIENT CLOSELY.
--- NOTE | 2018-08-25 07:50 | NUR ---
RN JOHN NOTES RECEIVED BEDSIDE REPORT PATIENT A/O X4 NO SIGNS OF RESPIRATORY DISTRESS SATUTATING WELL ON 2 LTRS. NO C/O PAIN AT THIS TIME. IV TO LFA # 20 GAUGE SALINE LOCK. PATIENT HAS LEFT CHEST TUBE CLAMPED. PATIENT STATES THAT HOME HEALTH COMES TO DRAINING FLUID. ORDERED PLURAL VAC FROM [facility] . AMBULATORY WITH STAND BY ASSIST. WILL CLARIFY WITH DR WHEELER IN REGARDS TO PATIENT CODE STATUS. SAFETY PRECAUTIONS IN PLACE BED IN LOW POSITION CALL LIGHT WITHIN REACH. WILL CONT TO MONITOR ACCORDINGLY.
[2018-08-25 08:00] VITALS: BP 135/85
[2018-08-25] MEDS ORDERED: ACET-868 PO (08:43)
[2018-08-25] MEDS ORDERED: HYDR-4384 PO (08:43)
[2018-08-25] MEDS ORDERED: LORAZEPAM 1 MG TABLET PO PRN (09:30)
[2018-08-25] MEDS ORDERED: BENZTROPINE MESYLATE (1 MG) 1 MG TABLET PO PRN (09:30)
[2018-08-25] MEDS ORDERED: CLONIDINE HCL 0.1 MG TABLET PO PRN (09:30)
--- NOTE | 2018-08-25 10:37 | NUR ---
RN JOHN NOTES DR WHEELER AT BEDSIDE ONLY 5 ML REMOVED FROM LEFT CHEST TUBE. PLAN TO TRANSFER PATIENT OUT FOR STENT PLACEMENT
[2018-08-25] MEDS ORDERED: METOPROLOL TARTRATE 50 MG TABLET PO SCH (11:00)
[2018-08-25] MEDS: POTASSIUM CHLORIDE 20 MEQ TAB.PRT.SR PO SCH ×2 (11:27→12:00)
[2018-08-25 12:00] VITALS: BP 126/80
[2018-08-25] MEDS ORDERED: POTASSIUM CHLORIDE 20 MEQ TAB.PRT.SR PO SCH (15:30)
[2018-08-25 16:00] VITALS: BP 134/83
--- NOTE | 2018-08-25 19:11 | NUR ---
Gave report to AMS transferring patient to [facility], Med Surg 2, Room 118 bed 2. Patient signed all discharge paperwork. Patient has all her belongings with her. Vitals WNL. Patient refused to be transported to hospital, states it's too far.
--- NOTE | 2018-08-25 19:18 | NUR ---
PATIENT STATES SHE DOES NOT WANT TO TRANSFER. SPOKE WITH TOMAS ON PHONE AND EXPLAINED THAT PATIENT NEEDS HIGHER LEVEL OF CARE PER MD. RALEIGHECE WHO PATIENT LIVES WITH SAYS THAT HOSPITAL IS TO FAR AND IF THEY CAN JUST PICK HER UP LATER TOMORROW. EXPLAINED THAT IF THEY CAN PICK HER UP TOMORROW. I INFORMED THEM I WILL CALL MD. THEY SAID THEY WILL COME PICK HER UP AND PATIENT STATES SHE JUST WANTS TO GO HOME.
[2018-08-25 20:05] VITALS: BP 131/79
[2018-08-25] MEDS ORDERED: HALOPERIDOL 5 MG TABLET PO SCH (22:00)
[2018-08-26] MEDS ORDERED: LINAGLIPTIN 5 MG TABLET PO SCH (09:00)
== END 2018-08-25 23:48 | disposition home or self-care (01) | DRG 143 ==
LOC: ER 21:31 → TELE1 08-25 01:40 → TELE-TD 08-25 02:35 → TELE1 08-25 14:28
PROVIDERS: ADMIT Internal Medicine; ATTEND Internal Medicine
DX: J98.19 Other pulmonary collapse (principal); I21.A1 Myocardial infarction type 2; J96.00 Acute respiratory failure, unspecified whether with hypoxia or hypercapnia; J91.0 Malignant pleural effusion; E22.2 Syndrome of inappropriate secretion of antidiuretic hormone; C34.90 Malignant neoplasm of unspecified part of unspecified bronchus or lung; I48.91 Unspecified atrial fibrillation; Z66 Do not resuscitate; E11.9 Type 2 diabetes mellitus without complications; I10 Essential (primary) hypertension; F20.9 Schizophrenia, unspecified; J44.9 Chronic obstructive pulmonary disease, unspecified; F32.9 Major depressive disorder, single episode, unspecified; F17.210 Nicotine dependence, cigarettes, uncomplicated; D50.9 Iron deficiency anemia, unspecified; Z92.21 Personal history of antineoplastic chemotherapy; J98.09 Other diseases of bronchus, not elsewhere classified
CPT/HCPCS: 36415; 71045-TC; 80048-TC; 80076-TC; 83605-TC; 84484-TC; 85025-TC; 85730-TC; 87040-TC; 87081-TC; G0378; J7030; J7050; Q9967

== ENCOUNTER 2018-08-27 23:16 | Inpatient (IN) | payer MEDICAID ==
[~2018-08-27] VITALS: Ht 165.1 cm; Wt 46.7 kg
[~2018-08-27 23:16] MED LIST changes: +ACET-868 PO; -ASPI-1152 PO; -DILT240C88 PO; -Digoxin PO; +HYDR-4384 PO; -LEVO500T75 PO; -LOSA50TA39 PO; -MECL12.582 PO; -METO25TA6 PO
--- NOTE | 2018-08-27 23:21 | NUR ---
KEITH FOR C/O SOB. PMH OF LUNG CANCER PER fisher eel.
[2018-08-27] MEDS ORDERED: DILTIAZEM HCL 25 MG IV ONE (23:37)
[2018-08-27 23:43] LABS: BASOPHILS # (AUTO) 0.1 /CMM (0.0-0.2); BASOPHILS % (AUTO) 0.7 % (0.0-2.0); EOSINOPHILS % (AUTO) 0.3 % (0.0-6.0); HEMATOCRIT 31 % (33-45); LYMPHOCYTES # (AUTO) 0.6 /CMM (0.8-4.8); LYMPHOCYTES % (AUTO) 5.4 % (20.0-44.0); MEAN CORPUSCULAR HGB CONC 32 g/dl (31.0-36.0); MEAN CORPUSCULAR VOLUME 77 fL (82-100); MONOCYTES # (AUTO) 0.8 /CMM (0.1-1.30); MONOCYTES % (AUTO) 7.3 % (2.0-12.0); NEUTROPHILS # (AUTO) 9.3 /CMM (1.8-8.9); NEUTROPHILS % (AUTO) 86.3 % (43.0-81.0); PLATELET COUNT (AUTO) 297 /CMM (150-450); RED BLOOD CELL COUNT(AUTO) 3.99 MIL/uL (4.0-5.2); WHITE BLOOD COUNT (AUTO) 10.8 K/uL (4.3-11.0)
--- NOTE | 2018-08-27 23:43 | NUR ---
rt at the bed side for ABG draw.
[2018-08-27 23:52] LABS: CALCIUM, SERUM 8.4 mg/dL (8.5-10.1); CREATININE 0.6 mg/dL (0.6-1.3); POTASSIUM 3.4 mmol/L (3.5-5.1)
--- NOTE | 2018-08-27 23:55 | NUR ---
real estate executive assistant at the bed side
[2018-08-28] VITALS (49 sets, daily range): BP systolic 92–194; BP diastolic 41–133
[2018-08-28] LABS: ABG BASE EXCESS -0.8 mmol/L; ABG OXYGEN SATURATION 91.9 % (92.0-98.5); ABG PCO2 38.4 mmHg (35.0-45.0); ABG PH 7.409 (7.350-7.450); ABG PO2 68.1 mmHg (75.0-100.0); AaDO2 115.1 mmHg; COHb 0.4 % (0.5-1.5); MetHb 0.6 % (0.0-1.5); SITE, ABG Right Radial; VENT MODE, BG NASAL CANNULA
[2018-08-28] MEDS ORDERED: DILTIAZEM HCL 50 MG IV IV ONE
[2018-08-28] MEDS ORDERED: IV NS 0.9% 1,000 ML BAG IV ONE
--- NOTE | 2018-08-28 | NUR ---
PT WAS PLACED ON A NON- REBREATHER MASK. O2 SAT ON 2 LPM VIA NC 87%.
[2018-08-28 00:05] LABS: ALBUMIN 2.5 g/dL (3.4-5.0); BILIRUBIN,DIRECT 0.2 mg/dL (0.0-0.2); BILIRUBIN,TOTAL 0.3 mg/dL (0.2-1.0); TOTAL PROTEIN, SERUM 7.4 g/dL (6.4-8.2)
--- NOTE | 2018-08-28 00:10 | NUR ---
O2 SAT INCREASED TO 100% ON NON- REBREATHER MASK.
--- NOTE | 2018-08-28 00:16 | NUR ---
CALLED RT FOR BREATHING TX
[2018-08-28] MEDS ORDERED: ALBUTEROL FS 2.5 MG/3 ML VIAL.NEB ONE (00:20)
[2018-08-28] MEDS ORDERED: IPRATROPIUM NEB FS 0.5 MG/2.5 ML AMPUL.NEB ONE (00:20)
[2018-08-28] MEDS ORDERED: ALBUTEROL FS 2.5 MG/3 ML VIAL.NEB NEB ONE (00:30)
[2018-08-28] MEDS ORDERED: IPRATROPIUM NEB FS 0.5 MG/2.5 ML AMPUL.NEB NEB ONE (00:30)
--- NOTE | 2018-08-28 00:32 | NUR ---
MADE AWARE OF THE HIGH HEART RATE W/ NON EW ORDER AT THIS TIME. PT CURRENTLY RECEIVING BREATHING TX W/ THE FAMILY AT THE BED SIDE. WILL CONT TO MONITOR
[2018-08-28] MEDS ORDERED: DILTIAZEM HCL IV 125 MG in IV D5W 100 ML IV PRN (02:00)
--- NOTE | 2018-08-28 02:14 | NUR ---
REPORT GIVEN TO SHEREEN ON FIRST FLOOR
--- NOTE | 2018-08-28 02:45 | NUR ---
RN NOTE RECEIVED PATIENT FROM ER VIA GURNEY, AWAKE, LETHARGIC, ON NON-REBREATHER MASK 15 L/MIN, DX ELEVATED TROPONIN, LEFT HAND 20 GAUGE, NO S/S OF INFECTION/INFILTRATION NOTED, SKIN PICTURES TAKEN AND PLACED IN THE CHART, ALL SAFETY MEASURES TAKEN, BELONGING'S LIST IS IN THE CHART, WILL CONTINUE TO MONITOR PATIENT
--- NOTE | 2018-08-28 02:51 | NUR ---
PT WAS TRANSFERRED TO 110 UNDER ACLS PROTOCOL.
[2018-08-28] MEDS ORDERED: ONDANSETRON HCL/PF 4 MG/2 ML VIAL ONE (04:46)
[2018-08-28] MEDS: ONDANSETRON HCL/PF 4 MG/2 ML VIAL IV PRN (04:52)
[2018-08-28] MEDS ORDERED: ACETAMINOPHEN 325 MG TABLET PO PRN ×2 (05:00→09:00)
[2018-08-28] MEDS ORDERED: CLONIDINE HCL 0.1 MG TABLET PO PRN ×2 (05:00→09:00)
[2018-08-28] MEDS ORDERED: HYDROCODONE/APAP 5/325MG 1 EACH TABLET PO PRN ×2 (05:00→09:00)
[2018-08-28] MEDS ORDERED: HYDROMORPHONE INJ 2 MG/ML DISP.SYRIN IV PRN (05:00)
--- NOTE | 2018-08-28 05:00 | NUR ---
RN NOTE HEART RATE OF 180 BEATS/MIN NOTED, BP 174/110, PATIENT IS RESTLESS, ATTEMPTS ON PULLING IV AND LEFT PLEURAL CATHETER, PAIN 10/10 GENERALIZED, NAUSEA, CALLED DR SUMMER Avina, RECEIVED AN ORDER FOR EKG, DILAUDID 2.5MG Q 3 HOURS PRN, ZOFRAN 4 MG Q 4 HOURS PRN, ZOSYN 3.375G Q 8 HOURS, BILATERAL SOFT WRIST RESTRAINTS, ACCU CHECKS Q 6 HOURS ON MILD SLIDING SCALE, ORDERS WERE TRANSCRIBED AND READ BACK, CHARGE NURSE BARBIE IS AWARE
[2018-08-28] MEDS ORDERED: PIPERACILLIN /TAZOBACTAM 3.375 G VIAL IV ONE (05:24)
[2018-08-28] MEDS ORDERED: DEXTROSE 50%-WATER 50 ML DISP.SYRIN IV PRN (05:30)
[2018-08-28] MEDS ORDERED: PIPERACILLIN /TAZOBACTAM 3.375 G in IV D5W 50 ML IV SCH (05:30)
[2018-08-28] MEDS: BLOOD SUGAR DIAGNOSTIC 1 EACH STRIP IN SCH ×3 (06:14→17:51)
[2018-08-28] MEDS: INSULIN REGULAR, HUMAN 100 UNIT/ML 3 ML VIAL SQ PRN (06:15)
[2018-08-28 06:33] LABS: BASOPHILS % (AUTO) 0.2 % (0.0-2.0); EOSINOPHILS % (AUTO) 0.2 % (0.0-6.0); HEMATOCRIT 36 % (33-45); HEMOGLOBIN 11.3 g/dL (11.5-14.8); LYMPHOCYTES # (AUTO) 1.9 /CMM (0.8-4.8); LYMPHOCYTES % (AUTO) 12.6 % (20.0-44.0); MEAN CORPUSCULAR HGB CONC 32 g/dl (31.0-36.0); MEAN CORPUSCULAR VOLUME 78 fL (82-100); MONOCYTES % (AUTO) 6.6 % (2.0-12.0); NEUTROPHILS # (AUTO) 11.8 /CMM (1.8-8.9); NEUTROPHILS % (AUTO) 80.4 % (43.0-81.0); PLATELET COUNT (AUTO) 444 /CMM (150-450); RED BLOOD CELL COUNT(AUTO) 4.61 MIL/uL (4.0-5.2); WHITE BLOOD COUNT (AUTO) 14.7 K/uL (4.3-11.0)
[2018-08-28 06:41] LABS: CALCIUM, SERUM 8.8 mg/dL (8.5-10.1); CREATININE 0.7 mg/dL (0.6-1.3)
[2018-08-28 06:50] LABS: POTASSIUM 2.8 mmol/L (3.5-5.1)
--- NOTE | 2018-08-28 06:52 | NUR ---
RN NOTE RECEIVED CALL FROM LAB, POTASSIUM 2.8, PAGED DR SUMMER MAGANA, AWAITING TO CALL BACK
--- NOTE | 2018-08-28 07:06 | NUR ---
RN NOTE DOCTOR SUMMER Avina CALLED BACK, NOTIFIED DR WHEELER OF POTASSIUM 2.8, NEW ORDERS GIVEN TRANSCRIBED AND READ BACK. WILL ENDORSE TO AM NURSE TO CONTINUE CARE Addendum: 08/28/18 at 0720 by SHERLY CAIN RN DR SUMMER Avina ORDERED TO CANCELLED CT ANGIO HEART WITH 3D IMAGE
[2018-08-28] MEDS ORDERED: DIGOXIN INJ 0.5 MG/2 ML AMPUL IV ONE (07:30)
[2018-08-28] MEDS: POTASSIUM CL. PREMIX PERIPHER. 50 ML IV SCH ×6 (07:49→15:27)
--- NOTE | 2018-08-28 08:00 | NUR ---
RN NOTE RECEIVED PATIENT IN BED SLEEPING, NO SOB OR ACUTE DISTRESS NOTED. 10 LITERS 02 GIVEN VIA MASK. L HAND # 20 IV INTACT AND PATENT. NO S/S OF INFECTION/INFILTRATION NOTED, SOFT RESTRAINTS IN PLACE FOR PATIENT SAFETY. PATIENT REPORTED TO BE PULLING AT IV LINES AND ATTEMPTING TO GET OUT OF BED. SAFETY MEASURES IN PLACE, BED IN LOW LOCKED POSITION. CALL LIGHT WITHIN REACH. BELONGING'S LIST IS IN THE CHART, WILL CONTINUE TO MONITOR PATIENT
[2018-08-28] MEDS ORDERED: NALOXONE HCL 0.4 MG/ML AMPUL ONE ×2 (08:15→09:18)
[2018-08-28] MEDS ORDERED: NALOXONE HCL 0.4 MG/ML AMPUL IV PRN (08:30)
[2018-08-28] MEDS ORDERED: METOPROLOL TARTRATE 25 MG TABLET PO SCH (09:00)
[2018-08-28] MEDS ORDERED: LORAZEPAM 1 MG TABLET PO SCH (09:00)
[2018-08-28] MEDS ORDERED: SITAGLIPTIN PHOSPHATE 50 MG TABLET PO SCH (09:00)
[2018-08-28] MEDS ORDERED: BENZTROPINE MESYLATE (1 MG) 1 MG TABLET PO SCH (09:00)
[2018-08-28] MEDS: BENZTROPINE MESYLATE (1 MG) 1 MG TABLET PO SCH ×3 (09:00→16:48)
[2018-08-28] MEDS ORDERED: Medication Not On Formulary EA (Alogliptin Benzoate (Alogliptin) 25 MG) PO SCH (09:00)
[2018-08-28] MEDS: METOPROLOL TARTRATE 50 MG TABLET PO SCH ×2 (09:00→21:00)
[2018-08-28] MEDS ORDERED: LORAZEPAM INJ 2 MG/ML VIAL IV PRN (09:00)
[2018-08-28] MEDS: LINAGLIPTIN 5 MG TABLET PO SCH (09:00)
--- NOTE | 2018-08-28 09:08 | NUR ---
WOUND CARE CONSULT: PT UNSTABLE FOR SKIN ASSESSMENT AT THIS TIME. WILL SEE PT PT CONDITION PERMITS. PT ON MATHEUS ISOFLEX LOW AIRLOSS BED. SKIN PROTECTION MEASURES IN PLACE AND DISCUSSED WITH NURSING STAFF.
--- NOTE | 2018-08-28 09:10 | NUR ---
CAPTURE MANAGER NOTES PATIENT WAS TRANSFERRED TO ROOM 116-[address] WHEELER ORDERED TO CHANGE PATIENT'S STATUS TO JOHN FROM TELE. SITTER AT BEDSIDE. PRIMARY NURSE THIS MORNING WAS SARAH. WAS IN THE MIDDLE OF GIVING ME REPORT THEN PATIENT STARTED DESATING, LOWEST AT 80%, HR ELEVATED TO 150-200. CALLED CAPTURE MANAGER. ICU TEAM CAME AT BEDSIDE. ONE OF JOHN NURSES CHECKED BS, 214. BP 157/63, HR 155, 80%, 97.9F, AND [address] GUERRIER AT BEDSIDE. AND DR WHEELER OVER THE PHONE. DR WHEELER ORDERED ANOTHER NARCAN 0.4 IVP. NO EFFECT. ORDERED TO SEND PATIENT TO ICU FOR A POSSIBLE NARCAN DRIP. REPORT GIVEN TO ICU NURSES.
[2018-08-28 09:20] LABS: ABG BASE EXCESS -3.2 mmol/L; ABG OXYGEN SATURATION 99.4 % (92.0-98.5); ABG PCO2 59.9 mmHg (35.0-45.0); ABG PH 7.237 (7.350-7.450); ABG PO2 262.3 mmHg (75.0-100.0); AaDO2 245.2 mmHg; COHb 0.6 % (0.5-1.5); MetHb 0.2 % (0.0-1.5); O2Hb 98.6 % (94.0-97.0); SITE, ABG Right Radial; VENT MODE, BG NRB
[2018-08-28] MEDS ORDERED: Z GUARD REMEDY 2 OZ OINT TP PRN (09:30)
--- NOTE | 2018-08-28 09:52 | NUR ---
INDUSTRIAL COMMERCIAL GROUNDSKEEPER NOTE MD BEDSIDE AT APPROXIMATELY 0810. MD ORDERED NARCAN TO BE GIVEN STAT. NARCAN ADMINISTRED AT 0817.. PATIENT SOON BECAME AGITATED AND EXTREMELY RESTLESS. HR ELEVATED TO 150 - 200 BPM. [facility] CALLED, PATIENT TRANSFERRED TO ICU.
[2018-08-28] MEDS: Z GUARD REMEDY 2 OZ OINT TP SCH (10:07)
[2018-08-28] MEDS: DILTIAZEM HCL IV 125 MG in IV NS 0.9% 100 ML IV PRN ×2 (10:17→23:25)
[2018-08-28] MEDS: IPRATROPIUM NEB FS 0.5 MG/2.5 ML AMPUL.NEB NEB SCH ×4 (10:42→23:51)
[2018-08-28] MEDS: ACETYLCYSTEINE 10% SOLN 400 MG/4 ML VIAL NEB SCH ×3 (10:42→23:51)
[2018-08-28] MEDS: PIPERACILLIN /TAZOBACTAM 3.375 G in IV D5W 100 ML IV SCH ×2 (12:36→20:33)
--- NOTE | 2018-08-28 12:36 | NUR ---
WOUND CARE CONSULT: PT PRESENTS WITH BLANCHABLE REDNESS TO ELBOWS, STAGE 2 SACRAL ULCER AND PLEUREX DRAIN TO UPPER BACK, PRESENT ON ADMISSION. PT CURRENTLY ON BIPAP. RECOMMENDATIONS MADE FOR WOUND CARE AND SKIN PROTECTION. DISCUSSED WITH NURSING STAFF. PT ON MATHEUS ISOFLEX LOW AIRLOSS BED. PT MOVES LEGS ALMOST CONSTANTLY. WILL SEE PRN. IN AGREEMENT WITH PLAN OF CARE.
[2018-08-28] MEDS ORDERED: HYDROGEL DRESSING 90 GM TUBE TP PRN (13:00)
[2018-08-28] MEDS: HYDROGEL DRESSING 90 GM TUBE TP SCH (13:18)
[2018-08-28 13:34] LABS: ABG BASE EXCESS 1.8 mmol/L; ABG OXYGEN SATURATION 90.1 % (92.0-98.5); ABG PCO2 49.3 mmHg (35.0-45.0); ABG PH 7.367 (7.350-7.450); ABG PO2 61.4 mmHg (75.0-100.0); AaDO2 167.1 mmHg; COHb 0.6 % (0.5-1.5); MetHb 0.3 % (0.0-1.5); O2Hb 89.3 % (94.0-97.0); SITE, ABG Left Radial; VENT MODE, BG ST 15/5 R 12
--- NOTE | 2018-08-28 16:52 | NUR ---
RN NOTE 1030: Patient SP BOILERMAKER WELDER secondary to patient received Dilaudid 2.5 then was given Narcan 0.4x1, then Ativan. Patient is restless right now, HR 140's. EKG shows Afib. ABG done. Dr. Reis in the unit aware, with order to start patient on Bipap. Placed [address] Ruggiero made aware patient having Afib 170-180's, SBP 180's, obtained order to start on Diltiazem drip. Bilateral SW restraints on for patient noted pulling out tubings and lines. With left lateral side Pleurex. 1100: Sister and [id number] at bedside, updated re: patient's condition. 1300: ABG resulted again, tried patient on 6LPM O2 via NC, desats 82%, triend Simple mask still desatting. Placed back on Bipap. 1600: ST 100-110's at this time. Patient still noted with agitation at times. Titrated Dilt as ordered.
--- NOTE | 2018-08-28 19:45 | NUR ---
ICU/HEEL SANDER RECEIVED REPORT FROM DAY NURSE. SEE NURSING FLOW SHEET FOR ASSESSMENT AND ANY SKIN ISSUES THAT PT MAY HAVE ALONG WITH THE INTERVENTIONS TO EACH OF THESE. PT HAS IV FLOWSHEET OF DRIPS ALONG WITH TITRATIONS. PT WAS TURNED AND REPOSITIONED FOR COMFORT AND CARE. NO ACUTE DISTRESS SEEN AT THIS TIME. WILL MONITOR THIS PT.
--- NOTE | 2018-08-28 20:23 | NUR ---
PT RCVD ON BIPAP 15/5,RATE 12, FIO2 60%. BREATHING TX GIVEN PER MD'S ORDERED. NO ADVERSE REACTION NOTED. BIPAP PLUGGED INTO RED OUTLET, ALARMS ON AND AUDIBLE. NO RESPIRATORY DISTRESS NOTED AT THIS TIME. WILL CONTINUE TO MONITOR THE PT.
[2018-08-28] MEDS: HALOPERIDOL 5 MG TABLET PO SCH (21:50)
--- NOTE | 2018-08-28 21:51 | NUR ---
ICU/SOCIAL INSURANCE SPECIALIST HELD THE 2200 DOSE OF HALDOL PO DUE TO PT CURRENTLY ON BIPAP. WILL CONTINUE TO MONITOR THIS PT AND HER LEVEL OF AGITATION.
--- NOTE | 2018-08-28 22:10 | NUR ---
ICU/SHAFTING WORKER CHARGE NURSE NOTIFIED ABOUT HIGH BLOOD PRESSURE CARDIZEM DRIP WAS INCREASED DUE TO 10MG FROM 5MG. BLOOD PRESSURE IS 160/96 HEART RATE IS 110. WILL CONTINUE TO MONITOR THIS PT. PT AT THIS TIME WAS TURNED AND REPOSITIONED FOR COMFORT AND CARE.
--- NOTE | 2018-08-28 23:10 | NUR ---
ICU/OLAP DEVELOPER PT GIVEN PM CARE, NO BM SEEN. PT IS ON BIPAP WITH SATURATION AT 98-100%. PT WAS TURNED AND REPOSITIONED FOR COMFORT AND CARE. WILL CONTINUE TO MONITOR THIS PT, ALONG WITH HER SATURATION, AND HEART RATE. NO ACUTE DISTRESS SEEN AT THIS TIME.
[2018-08-29] VITALS (27 sets, daily range): BP systolic 92–167; BP diastolic 40–99
[2018-08-29] MEDS: BLOOD SUGAR DIAGNOSTIC 1 EACH STRIP IN SCH ×5 (00:29→23:27)
--- NOTE | 2018-08-29 00:49 | NUR ---
ICU/CLAY PROCESSING LABOURER PT'S BLOOD SUGAR IS 189, HOWEVER PT IS NOT EATING ANYTHING DUE TO BEING LETHARGIC AND SLEEPY. WILL CONTINUE TO MONITOR THIS PT ORDERED BY MD. PT WAS TURNED AND REPOSITIONED FOR COMFORT AND CARE.
--- NOTE | 2018-08-29 03:00 | NUR ---
ICU/WOOD AND WOOD PRODUCTS FACTORY WORKER PT GIVEN PM CARE, NO BM SEEN. PT IS ON BIPAP WITH SATURATION AT 98-100%. PT WAS TURNED AND REPOSITIONED FOR COMFORT AND CARE. WILL CONTINUE TO MONITOR THIS PT, ALONG WITH HER SATURATION, AND HEART RATE. NO ACUTE DISTRESS SEEN AT THIS TIME.
[2018-08-29] MEDS: IPRATROPIUM NEB FS 0.5 MG/2.5 ML AMPUL.NEB NEB SCH ×6 (03:35→22:52)
[2018-08-29] MEDS: PIPERACILLIN /TAZOBACTAM 3.375 G in IV D5W 100 ML IV SCH ×3 (04:11→20:26)
--- NOTE | 2018-08-29 05:11 | NUR ---
ICU/DOCTOR CHIROPRACTIC AM LABS WERE DONE AWAIT FOR ANY ABNORMAL RESULTS. ALONG WITH CHEST XRAY.
--- NOTE | 2018-08-29 05:12 | NUR ---
ICU/HEPATOLOGY PHYSICIAN RT DROPPED THE FIO2 DOWN TO 50% FROM 60. WILL CONTINUE TO MONITOR THIS PT AND HER SATURATION.
[2018-08-29 06:00] LABS: ALBUMIN 2.5 g/dL (3.4-5.0); BILIRUBIN,TOTAL 0.6 mg/dL (0.2-1.0); CALCIUM, SERUM 8.9 mg/dL (8.5-10.1); CREATININE 0.7 mg/dL (0.6-1.3); POTASSIUM 3.1 mmol/L (3.5-5.1); TOTAL PROTEIN, SERUM 7.6 g/dL (6.4-8.2)
[2018-08-29 06:44] LABS: BASOPHILS # (AUTO) 0.1 /CMM (0.0-0.2); BASOPHILS % (AUTO) 0.7 % (0.0-2.0); HEMATOCRIT 31 % (33-45); LYMPHOCYTES # (AUTO) 0.3 /CMM (0.8-4.8); LYMPHOCYTES % (AUTO) 1.9 % (20.0-44.0); MEAN CORPUSCULAR HGB CONC 32 g/dl (31.0-36.0); MEAN CORPUSCULAR VOLUME 77 fL (82-100); MONOCYTES # (AUTO) 0.9 /CMM (0.1-1.30); MONOCYTES % (AUTO) 5.9 % (2.0-12.0); NEUTROPHILS # (AUTO) 13.9 /CMM (1.8-8.9); NEUTROPHILS % (AUTO) 91.5 % (43.0-81.0); PLATELET COUNT (AUTO) 306 /CMM (150-450); RED BLOOD CELL COUNT(AUTO) 4.06 MIL/uL (4.0-5.2); WHITE BLOOD COUNT (AUTO) 15.2 K/uL (4.3-11.0)
[2018-08-29] MEDS: ACETYLCYSTEINE 10% SOLN 400 MG/4 ML VIAL NEB SCH ×3 (07:51→22:52)
--- NOTE | 2018-08-29 07:59 | NUR ---
pt. is awake and follow commands, placed into nasal cannula @ 5lpm o2 flow. bipap on stand by @ bedside. spo2 98%, hr 87 bpm no sob noted. Addendum: 08/29/18 at 0800 by ROYA VICENTE RT Amended: Links added.
[2018-08-29] MEDS ORDERED: POTASSIUM CHLORIDE 20 MEQ TAB.PRT.SR PO ONE (08:30)
[2018-08-29] MEDS: LINAGLIPTIN 5 MG TABLET PO SCH (08:33)
[2018-08-29] MEDS: HYDROGEL DRESSING 90 GM TUBE TP SCH (08:34)
[2018-08-29] MEDS: BENZTROPINE MESYLATE (1 MG) 1 MG TABLET PO SCH ×3 (08:34→17:46)
[2018-08-29] MEDS: METOPROLOL TARTRATE 50 MG TABLET PO SCH ×2 (08:34→20:36)
[2018-08-29] MEDS: Z GUARD REMEDY 2 OZ OINT TP SCH (08:34)
[2018-08-29] MEDS: POTASSIUM CL. PREMIX PERIPHER. 50 ML IV SCH ×2 (08:57→10:03)
[2018-08-29] MEDS ORDERED: POTASSIUM CHLORIDE 10 MEQ/50 ML PREMIXED IVPB FOR PERIPHERAL LINE IV ONE (09:00)
--- NOTE | 2018-08-29 10:09 | NUR ---
RN NOTE 0715: Received patient awake, A/Ox2. On Bipap. Placed on 6LPM of O2 via NC, will monitor. On Cardizem @ 10mg, Aflutter 80's and SBP <140, will turn off and monitor VS. PIVs intact. Released CITIZEN PARTICIPATION SPECIALIST restraints. Reoriented patient for the transfer yesterday. 0800: S/E by Dr. Preciado, verbalized patient may go back to Tele today, made CN aware. 0930: S/E by Dr. Reis, no new order at this time. Still tolerated 6LPm of O2 via NC. 1000: Family at bedside, updated re: patient's condition. All concerns and questions were answered.
[2018-08-29] MEDS: DIGOXIN INJ 0.5 MG/2 ML AMPUL IV SCH ×3 (12:05→23:52)
[2018-08-29] MEDS: INSULIN REGULAR, HUMAN 100 UNIT/ML 3 ML VIAL SQ PRN ×2 (12:06→23:37)
--- NOTE | 2018-08-29 16:38 | NUR ---
RN NOTES RECEIVED PT FROM ICU IN ROOM 109, PT IS A/Ox3-4, ON 4L O2 N.C, O2 SAT WNL , ON TELE , SR AT 90'S AT THIS TIME, LFA IV SITE G 20 CLEAN ,DRY AND INTACT, SR UP X3, CALL LIGHT WITHIN EASY REACH, BED ALARM ON FOR PT SAFETY, NO DISTRESS NOTED, CONTINUE TO MONITOR .
--- NOTE | 2018-08-29 16:54 | NUR ---
RN NOTE Transferred patient to 109 via bed using ACLS protocols. No any significant changes noted. VSS. A/Ox2. Remained on 4LPM of O2 via NC. Kept clean, warm and dry. Needs attended. Placed bed alarm on. PIV intact. Endorsed to Denise for SAURABH.
--- NOTE | 2018-08-29 18:19 | NUR ---
RN NOTES PT STABLE, NO DISTRESS NOTED, WILL ENDORSE TO [employer] PRE[employer]ION SPECIALIST NURSE FOR CONTINUITY OF CARE .
--- NOTE | 2018-08-29 19:37 | NUR ---
RN OPENING NOTES: PT RCVD ON 4 L NC , NO RESPIRATORY DISTRESS NOTED AT THIS TIME. SAFETY PRECAUTIONS IN PLACE. FAMILY AT BEDSIDE. MEDICATIONS GIVEN BY FAMILY TO GIVE TO PHARMACY, AWARE. WILL CONTINUE TO MONITOR THE PT
[2018-08-29] MEDS ORDERED: LURA80TA PO (20:01)
[2018-08-29] MEDS: HALOPERIDOL 5 MG TABLET PO SCH (21:11)
--- NOTE | 2018-08-29 21:11 | NUR ---
CORAL HELD DUE TO NEW PSYCH MED IN SYSTEM PER HOME MED RECONCILE. NEW MED GIVEN MD MARYJANE
[2018-08-29] MEDS ORDERED: LATUDA 80MG PO SCH (22:00)
[2018-08-30] VITALS: BP 147/90
--- NOTE | 2018-08-30 00:40 | NUR ---
MADE AWARE PT IS IN AFLUTTER AT 0025. CALLED MD TO MAKE AWARE. WAITING FOR A RETURN PHONE CALL. PT BACK IN SINUS RYTHM AT 0035
[2018-08-30] MEDS ORDERED: DIGOXIN INJ 0.5 MG/2 ML AMPUL IV ONE (01:00)
--- NOTE | 2018-08-30 02:10 | NUR ---
ECG DONE. PT BETWEEN AFIB/AFLUTTER- ASYMPOTATIC- MD AWARE.
--- NOTE | 2018-08-30 02:13 | NUR ---
PER DR. WHEELER AFIB/FLUTTER IS CHRONIC. - NO NEW ORDERS.
[2018-08-30] MEDS: IPRATROPIUM NEB FS 0.5 MG/2.5 ML AMPUL.NEB NEB SCH ×6 (03:30→15:47)
[2018-08-30] MEDS: PIPERACILLIN /TAZOBACTAM 3.375 G in IV D5W 100 ML IV SCH ×2 (03:50→12:21)
--- NOTE | 2018-08-30 03:51 | NUR ---
LEFT FOREARM IV DISCONTINUTED. LEFT HAND GAUGE 20 INSERTED AND INTACT.
[2018-08-30 04:00] VITALS: BP 105/55
[2018-08-30] MEDS: BLOOD SUGAR DIAGNOSTIC 1 EACH STRIP IN SCH ×2 (05:43→12:36)
[2018-08-30] MEDS: INSULIN REGULAR, HUMAN 100 UNIT/ML 3 ML VIAL SQ PRN ×2 (05:53→12:35)
[2018-08-30 06:11] LABS: BASOPHILS % (AUTO) 0.3 % (0.0-2.0); HEMATOCRIT 38 % (33-45); HEMOGLOBIN 11.9 g/dL (11.5-14.8); LYMPHOCYTES # (AUTO) 0.5 /CMM (0.8-4.8); LYMPHOCYTES % (AUTO) 3.6 % (20.0-44.0); MEAN CORPUSCULAR HGB CONC 31 g/dl (31.0-36.0); MEAN CORPUSCULAR VOLUME 78 fL (82-100); MONOCYTES # (AUTO) 0.8 /CMM (0.1-1.30); MONOCYTES % (AUTO) 5.2 % (2.0-12.0); NEUTROPHILS # (AUTO) 13.9 /CMM (1.8-8.9); NEUTROPHILS % (AUTO) 90.9 % (43.0-81.0); PLATELET COUNT (AUTO) 440 /CMM (150-450); WHITE BLOOD COUNT (AUTO) 15.3 K/uL (4.3-11.0)
--- NOTE | 2018-08-30 06:32 | NUR ---
RN CLOSING NOTES: PT ON 4 L NC , NO RESPIRATORY DISTRESS NOTED AT THIS TIME. HOB ELEVATED. R HAND IV 20 G IN TACT.. SAFETY PRECAUTIONS IN PLACE. . PT IN AFLUTTER/AFIB/SINUS TACHY ON MONITER. AWARE. ALL MEDS AND CARE RENDERED. WILL ENDORSE TO AM SHIFT TO CARRY OUT PLAN OF CARE.
[2018-08-30 06:48] LABS: CALCIUM, SERUM 10.1 mg/dL (8.5-10.1); CREATININE 0.8 mg/dL (0.6-1.3); POTASSIUM 3.9 mmol/L (3.5-5.1)
[2018-08-30] MEDS: ACETYLCYSTEINE 10% SOLN 400 MG/4 ML VIAL NEB SCH ×4 (07:35→15:47)
[2018-08-30 08:00] VITALS: BP 105/61
[2018-08-30] MEDS: HYDROGEL DRESSING 90 GM TUBE TP SCH (08:38)
[2018-08-30] MEDS: LINAGLIPTIN 5 MG TABLET PO SCH (08:39)
[2018-08-30] MEDS: BENZTROPINE MESYLATE (1 MG) 1 MG TABLET PO SCH ×2 (08:39→13:25)
[2018-08-30] MEDS: METOPROLOL TARTRATE 50 MG TABLET PO SCH (08:40)
[2018-08-30 09:00] VITALS: BP 94/61
[2018-08-30] MEDS ORDERED: DIGOXIN 0.125 MG TABLET PO SCH (09:00)
[2018-08-30] MEDS ORDERED: AMIODARONE HCL 200 MG TABLET PO SCH (09:00)
--- NOTE | 2018-08-30 10:21 | NUR ---
MS RN NOTES DR WHEELER WANTS IN HOUSE HOSPICE EVAL.
--- NOTE | 2018-08-30 10:21 | NUR ---
RN NOTE: DR. WHEELER WAS INFORMED THAT THE PATIENT WAS TRYING TO PULL OUT LINES, AND TRYING TO GET OUT OF BED UNASSISTED. UNABLE TO REDIRECT THE PATIENT. PER DR. WHEELER, HE ORDERED 1:1 SITTER AND IN HOUSE HOSPICE EVALUATION. ORDER NOTED AND CARRIED OUT. PRIMARY NURSE LEFTY WAS MADE AWARE. ASSISTED LIVING COORDINATOR ASHLEY WAS INFORMED OF THE HOSPICE EVAL.
[2018-08-30] MEDS: Z GUARD REMEDY 2 OZ OINT TP SCH (10:31)
--- NOTE | 2018-08-30 16:34 | NUR ---
MS RN NOTES PT'S FAMILY REQUESTED TO TRANSFER PT TO HOSPICE. JASKARAN CASTILLO WITH [facility] CONSULTED WITH PT.
[2018-08-30] MEDS: ONDANSETRON HCL/PF 4 MG/2 ML VIAL IV PRN (16:41)
[2018-08-30] MEDS ORDERED: AMOX-430 PO (17:03)
[2018-08-30] MEDS ORDERED: Digoxin PO (17:03)
[2018-08-30] MEDS ORDERED: METO50TA16 PO (17:03)
[2018-08-30] MEDS ORDERED: AMIO200T7 PO (17:03)
--- NOTE | 2018-08-30 18:02 | NUR ---
ms rn notes called dr [facility] for pt's unrelieved nausea. no episodes of vomiting noted
== END 2018-08-30 17:21 | disposition hospice, home (50) | DRG 137 ==
LOC: ER 23:16 → TELE1 08-28 02:13 → TELE-TD 08-28 08:30 → TELE1 08-28 08:30 → UNDODISIN 08-28 09:09 → ICU 08-28 09:18 → TELE1 08-29 16:36 → MEDSG1 08-30 09:32
PROVIDERS: ADMIT Internal Medicine; ATTEND Internal Medicine
PROC: 5A09357 Assistance with Respiratory Ventilation, Less than 24 Consecutive Hours, Continuous Positive Airway Pressure (ICD-10-PCS; principal; 2018-08-28)
DX: J69.0 Pneumonitis due to inhalation of food and vomit (principal); J96.02 Acute respiratory failure with hypercapnia; G92 Toxic encephalopathy; J90 Pleural effusion, not elsewhere classified; J98.09 Other diseases of bronchus, not elsewhere classified; C34.90 Malignant neoplasm of unspecified part of unspecified bronchus or lung; I48.2 Chronic atrial fibrillation; E11.9 Type 2 diabetes mellitus without complications; D50.9 Iron deficiency anemia, unspecified; J44.9 Chronic obstructive pulmonary disease, unspecified; E87.6 Hypokalemia; I10 Essential (primary) hypertension; F32.9 Major depressive disorder, single episode, unspecified; Z51.5 Encounter for palliative care; Z66 Do not resuscitate; F17.210 Nicotine dependence, cigarettes, uncomplicated; J98.11 Atelectasis; F39 Unspecified mood [affective] disorder; J98.19 Other pulmonary collapse; Z79.899 Other long term (current) drug therapy
CPT/HCPCS: 31720; 36415; 36600; 71045-TC; 80048-TC; 80053-TC; 80076-TC; 82803-TC; 82962-TC; 83605-TC; 83735-TC; 83880; 84484-TC; 85025-TC; 85730-TC; 87040-TC; 87081-TC; 94799-TC; A6248; G0378; J1160; J1170; J1815; J2060; J2310; J2405; J2543; J3480; J3490; J7030; J7040; J7050; J7060

== ENCOUNTER 2018-08-30 17:52 | Inpatient (IN) | payer OTHER ==
[~2018-08-30] VITALS: Ht 165.1 cm; Wt 41.3 kg
[~2018-08-30 17:52] MED LIST changes: +AMIO200T7 PO; +AMOX-430 PO; +Digoxin PO; +LURA80TA PO; +METO50TA16 PO
[2018-08-30] MEDS ORDERED: ONDANSETRON HCL/PF 4 MG/2 ML VIAL IV PRN (18:30)
[2018-08-30] MEDS ORDERED: METOCLOPRAMIDE HCL 10 MG/2 ML VIAL IV PRN (18:30)
--- NOTE | 2018-08-30 18:34 | NUR ---
internet technology manager notes called dr lee starks for orders for nausea: ordered 4mg zofran q4-6hrs; reglan 5mg q6h. will cont to monitor.
--- NOTE | 2018-08-30 18:35 | NUR ---
hosp rn notes faxed pharmacy med recon for hospice admission.
--- NOTE | 2018-08-30 18:56 | NUR ---
hospice clinical marketer notes pt had 1 episode of vomiting. gave zosyn and reglan as per md order. sitter at bedside. bed in locked/lowest position. will endorse to pm nurse for yogesh.
--- NOTE | 2018-08-30 19:36 | NUR ---
DEPUTY MANAGER NOTES: GIVEN REPORT THAT PATIENT IS NOW HOSPICE. WILL CARRY OUT PLAN OF CARE AND PROVIDE COMFORT MEASURES. SAFETY PRECAUTIONS. sitter at bedside. bed in locked/lowest position.
[2018-08-30] MEDS ORDERED: LORAZEPAM INJ 2 MG/ML VIAL IV PRN (20:00)
--- NOTE | 2018-08-30 20:00 | NUR ---
SPOKE WITH HOSPICE DOCTOR RENE TO VERIFY HOSPICE ORDERS AND MEDICATIONS FOR PATIENTS COMFORT MEASURES.
[2018-08-30 22:00] VITALS: BP_SYST 163; BP_DIAS 94; BP_DIAS 95
[2018-08-30] MEDS ORDERED: LORAZEPAM ORAL SOLN 2 MG/ML ORAL.CONC SL PRN (23:30)
[2018-08-30] MEDS ORDERED: MORPHINE SULFATE SOLN CONCENTRATED 20 MG/ML SL PRN (23:30)
[2018-08-31] MEDS ORDERED: MORPHINE SULFATE INJ 4 MG/ML DISP.SYRIN IV PRN
--- NOTE | 2018-08-31 00:42 | NUR ---
GAVE REPORT TO
--- NOTE | 2018-08-31 00:45 | NUR ---
AUTOMATIC WINDER OPERATOR NOTE PATIENT REPORT GIVEN BEDSIDE. PATIENT ADMISSION NOTE COMPLETED. RN WILL COMPLETE ADMISSION. PATIENT IN BED COMFORTABLE NO S/S OF DISTRESS. BREATHING EVEN UNLABORED. PATIENT A/O X 2-3. COMFORT MEASURES IN PLACE. RN WILL CONTINUE TO MONITOR AND SUPPORT PATIENT COMFORT. Addendum: 08/31/18 at 0115 by ASHWIN HORNER RN PATIENT ADMISSION ASSESSMENTS NO COMPLETED THIS RN ADELAIDA COMPLETE ADMISSION
[2018-08-31] MEDS ORDERED: LORAZEPAM ORAL SOLN 2 MG/ML ORAL.CONC SL PRN (07:30)
[2018-08-31] MEDS ORDERED: ONDANSETRON HCL/PF 4 MG/2 ML VIAL IV PRN (07:30)
[2018-08-31] MEDS ORDERED: MORPHINE SULFATE SOLN CONCENTRATED 20 MG/ML SL PRN (07:30)
[2018-08-31 08:00] VITALS: BP 112/79
--- NOTE | 2018-08-31 08:10 | NUR ---
MILKING WORKER OPENING NOTE PATIENT RECEIVED IN BED, RESTLESS, INTERMITTENTLY AWAKE/ASLEEP. PATIENT COMFORTABLE WITH NO SOB OR ACUTE DISTRESS NOTED. R HAND #20 SL INTACT AND PATENT. BREATHING EVEN UNLABORED. PATIENT A/O X 2-3. COMFORT MEASURES IN PLACE. RN WILL CONTINUE TO MONITOR AND SUPPORT PATIENT COMFORT.
[2018-08-31] MEDS: LORAZEPAM INJ 2 MG/ML VIAL IV PRN ×4 (08:43→21:38)
[2018-08-31] MEDS: Z GUARD REMEDY 2 OZ OINT TP SCH (09:55)
[2018-08-31] MEDS: MORPHINE SULFATE SOLN CONCENTRATED 20 MG/ML SL PRN ×5 (10:47→23:41)
[2018-08-31 16:00] VITALS: BP 147/86
--- NOTE | 2018-08-31 19:35 | NUR ---
SENIOR ELECTRICAL PROJECT MANAGER CLOSING NOTE PATIENT IN BED, RESTLESS AT TIMES, INTERMITTENTLY AWAKE/ASLEEP. HOSPICE PATEINT. NO SOB OR ACUTE DISTRESS NOTED. R HAND #20 SL INTACT AND PATENT. PATIENT CLEAN AND DRY, HOB IN SEMI-FOWLERS. ALL COMFORT MEDICATIONS GIVEN ORDERED. FAMILY AT BEDSIDE EARLIER IN SHIFT AND CURRENTLY. COMFORT MEASURES IN PLACE. BED IN LOW LOCKED POSITION. ALL HOSPICE INFORMATION IN BINDER NEXT TO PATIENT CHART. CARE ENDORSED TO ANESTHESIOLOGIST ASSISTANT RN. .
--- NOTE | 2018-08-31 19:50 | NUR ---
rn initial notes; received report from clay alford. pt in bed, hospice care, met with family at bed side. pt noted to be lethargic. per report with episode of restlessness, removing blankets and gown. iv access patent and flushing well, on hl. discussed plan of care to family. safety precautions for fall initiated, call light in reach, will continue monitoring pt.
[2018-08-31 20:00] VITALS: BP 117/78
--- NOTE | 2018-08-31 20:00 | NUR ---
PRN ROXANOL: FLACC SCALE UTILIZED OBTAINED SCORE OF 7, PRN ROXANOL SL ADMINISTERED AT THIS TIME. WILL CONTINUE MONITORING PT
--- NOTE | 2018-08-31 21:39 | NUR ---
prn ativan: noted pt to be agitated and restless, prn ativan 0.25ml ivp administered at this time
--- NOTE | 2018-08-31 22:14 | NUR ---
RN NOTES: RECEIVED CALL FROM DR ALEXI LÓPEZ, HOSPICE MD, INFORMED MD PT STILL NOTD TO HAVE RESTLESSNESS, PER MD TO CHANGE ATIVAN TO 1MG IVP Q2HRS PRN NEEDED. ORDERS READ BACK. VERIFIED. CARRIED OUT.
--- NOTE | 2018-08-31 22:17 | NUR ---
RN NOTES: CONTACTED DR ALEXI LÓPEZ INFORMED HE'S NAME ISNT SHOWING IN THE SYSTEM TO ORDER MEDS, PER DR RENE CHRISTIE TO PUT ORDER UNDER HOSPITALIST NAME. HOSPITALIST MD MACHINE FILLER SERVICER MADE AWARE.
[2018-08-31] MEDS ORDERED: LORAZEPAM INJ 2 MG/ML VIAL IV PRN ×2 (22:30)
--- NOTE | 2018-08-31 22:38 | NUR ---
RN NOTES: RECEIVED CALL FROM DR ALEXI LÓPEZ HOSPICE , INFORMD MD PER HOSPITALIST SHAHNAZ TO PUT ORDERS UNDER HOSPITALIST NAME. DR LÓPEZ ORDER TO GIVE DILAUDID 1MG (1ML) Q3HRS PRN FOR MODERATE TO SEVER PAIN, ORDERS READ BACK, VERIFIED, CARRIED OUT.
[2018-08-31] MEDS ORDERED: HYDROMORPHONE INJ 0.5 MG/0.5 ML SYRINGE IV PRN (23:00)
--- NOTE | 2018-08-31 23:42 | NUR ---
PRN ROXANOL: UTILIZED FLACC SCALE, SCORE OBTAINED 5/10, PRN ROXANOL 0.25ML ADMINISTERED SL AT THIS TIME.
--- NOTE | 2018-09-01 01:42 | NUR ---
rn notes; seen sleeping at this time, no facial grimace noted, appears calm and comfortable
[2018-09-01] MEDS: MORPHINE SULFATE SOLN CONCENTRATED 20 MG/ML SL PRN (03:12)
--- NOTE | 2018-09-01 03:13 | NUR ---
prn roxanol: utilized flacc scale, score obtained 2/10, prn Roxanol administered at this time. will continue to monitor and reassess pt
--- NOTE | 2018-09-01 06:01 | NUR ---
prn ativan: pt removed her gown, thrown pillow and blanket on the floor, restlessness noted, prn ativan 1mg administered at this time.
--- NOTE | 2018-09-01 06:31 | NUR ---
rn closing notes: pt in bed, remains lethargic, on 6l oxygen via nc, respirations even and unlabored, no facial grimace noted at this time, appears comfortable. iv access remains patent and flushing well, on hl. comfort care only. oral care provided. safety precautions for fall remains engaged, call light in reach, will endorse to day rn for continuity of care
--- NOTE | 2018-09-01 07:15 | NUR ---
MOBILE UI/UX DESIGNER OPENING NOTES RECEIVED PATIENT ASLEEP IN BED IN NO ACUTE SIGNS OF DISTRESS. HOB ELEVATED. HOSPICE STATUS MAINTAINED. APPEARS COMFORTABLE WITH NO FACIAL GRIMACING NOTED AT THIS TIME. ON 02 VIA N/C @ 6LPM, TOLERATING WELL WITH NO SOB NOTED. IV ACCESS ON R HAND #20 SL INTACT AND PATENT. COMFORT MEASURES IN PLACE. CALL LIGHT WITHIN REACH. WILL CONTINUE TO MONITOR .
[2018-09-01 08:00] VITALS: BP_SYST 126; BP_SYST 130; BP_DIAS 68; BP_DIAS 72
[2018-09-01] MEDS: Z GUARD REMEDY 2 OZ OINT TP SCH (08:50)
--- NOTE | 2018-09-01 09:34 | NUR ---
RN NOTES PATIENT JUST VISITED BY HOSPICE CARE NURSE. NO NEW ORDER MADE . WILL CONTINUE TO MONITOR.
[2018-09-01 16:00] VITALS: BP 128/72
--- NOTE | 2018-09-01 17:34 | NUR ---
RN NOTES WENT TO CHECKED FOR ROUTINE ROUND AND FOUND PT UNRESPONSIVE. ALL V/S NOT APPRECIATED. CALLED ANOTHER RN ELIANA EDUARDO AND PRONOUNCED PT AT 1700. ICE CUTTER WILDER DAIGLE INFOMRED AT 1703 OF PT'S . FAMILY/SISTER ROCÍO RUVALCABA CALLED AND MADE AWARE. ELIZA Caruso OF ADMITTING AND NURSE HEADLINE WRITER MONSERRAT CALLED AND MADE AWARE AT 1705. ONE CALLED [facility] CALLED AT 1705 AND SPOKE TO SUMIT, DNR POLTS FAXED PER REQUEST AND WAS CONFIRMED RECEIVED. SUMIT GAVE CASE # [id number] FOR PT. FAMILY AND HOSPICE CARE ARRIVED TO UNIT WHILE I AM SPEAKING TO ONE LEGCT ARANA. WILL DO POST MORTEM AND WILL SEND PT TO [facility].
--- NOTE | 2018-09-01 18:33 | NUR ---
RN NOTES RECEIVED CALL FROM PRECIOUS FROM [facility] AND I WAS INFORMED THAT THEY WILL COME TO PICK-UP PT'S BODY IN 2HRS TIME.
--- NOTE | 2018-09-01 19:01 | NUR ---
RN NOTES POST MORTEM DONE THEN ASSISTED SECURITY IN BRINGING PT'S BODY TO [facility].
== END 2018-09-01 17:00 | disposition expired | DRG 181 ==
LOC: HOSPICE1 17:52
PROVIDERS: ADMIT Nurse Practitioner Acute Care; ATTEND Nurse Practitioner Acute Care
DX: C34.92 Malignant neoplasm of unspecified part of left bronchus or lung (principal); J98.11 Atelectasis; Z51.5 Encounter for palliative care; D63.8 Anemia in other chronic diseases classified elsewhere; E11.9 Type 2 diabetes mellitus without complications; F17.210 Nicotine dependence, cigarettes, uncomplicated; F20.9 Schizophrenia, unspecified; F32.9 Major depressive disorder, single episode, unspecified; I10 Essential (primary) hypertension; I48.91 Unspecified atrial fibrillation; J44.9 Chronic obstructive pulmonary disease, unspecified
CPT/HCPCS: G0378; J2060; J2765